=== PATIENT | male | born 1955 | race African-American/Black ===

== ENCOUNTER → 2016-05-18 | Outpatient (CLI) | payer MEDICARE ==
[~2016-05-18] MED LIST: AMLO5 PO; ASPI1TAB69 PO; LISI2.5T3 PO; METO25TA3 PO; OMEP40CA2 PO; SOMA350T PO
[2016-05-18 12:51] LABS: BASOPHIL % 0.7 % (0.0-2.0); EOSINOPHIL # 0.2 TH/MM3 (0-0.4); EOSINOPHIL % 3.4 % (0.0-4.0); HEMATOCRIT 40.6 % (39.0-51.0); HEMO FLAGS DIFF FINAL; LYMPH % 51.8 % (9.0-44.0); LYMPHOCYTE # 3.4 TH/MM3 (1.0-4.8); MEAN CELL VOLUME 85.5 FL (80.0-100.0); MEAN CORPUSCULAR HEMOGLOBIN 29.1 PG (27.0-34.0); MONO % 12.6 % (0.0-8.0); NEUT % 31.5 % (16.0-70.0); PLATELET COUNT 138 TH/MM3 (150-450); RED BLOOD COUNT 4.75 MIL/MM3 (4.50-5.90); RED CELL DISTRIBUTION WIDTH 14.5 % (11.6-17.2); WHITE BLOOD COUNT 6.5 TH/MM3 (4.0-11.0)
== END ==
LOC: CLAB 12:03
PROVIDERS: ATTEND Radiology Radiation Oncology
DX: C61 Malignant neoplasm of prostate (principal)
CPT/HCPCS: 36415; 84153; 85025

== ENCOUNTER → 2016-05-19 | Outpatient (CLI) | payer MEDICARE ==
[2016-05-19 11:39] LABS: BICARBONATE 30.3 MEQ/L (21.0-32.0); POTASSIUM 4.3 MEQ/L (3.5-5.1)
--- NOTE | 2016-05-19 22:35 | EKG ---
Date Performed: 05/19/2016 Time Performed: 11:48:02 PTAGE: 61 years EKG: Sinus bradycardia. Normal ECG except for rate PREVIOUS TRACING : 06/15/2015 06.53 DOCTOR: Devante Osorio Interpretating Date/Time 05/19/2016 22:34:24
== END ==
LOC: HCAV 10:56
PROVIDERS: ATTEND Urology
DX: C61 Malignant neoplasm of prostate (principal); R00.1 Bradycardia, unspecified
CPT/HCPCS: 36415; 80048; 93005

== ENCOUNTER → 2016-05-25 | Day surgery (SDC) | payer MEDICARE ==
[~2016-05-25] VITALS: Ht 180.3 cm; Wt 61.8 kg
[~2016-05-25] MED LIST changes: +DO NOT ADM ANY ANTICOAGULANT DRUGS XX PRN; +FAMOTIDINE 20 MG/2 ML VIAL ONE; +GENTAMICIN IV SCH; +INSULIN HUMAN REGULAR 1,000 UNITS/10 ML VIAL SQ PRN; +LACTATED RINGER'S 1000 ML IV SCH; +METOPROLOL TARTRATE 25 MG TAB PO PRN; +MIDAZOLAM HCL 2 MG/2 ML VIAL ONE; +PHENYLEPH/NS 1000 MCG/10 ML SYR IV ONE; +PROPOFOL 200 MG/20 ML AMP IV ONE; +SODIUM CHLORID 0.9% 500 ML IV SCH; +SODIUM CHLORIDE 0.9% IV SCH; -SOMA350T PO
[2016-05-25 13:32] VITALS: BP 106/62; PULSE 67; RESP 16; TEMP 98.4; O2SAT 100
[2016-05-25 15:24] VITALS: TEMP 97.9
[2016-05-25 15:58] VITALS: BP 110/60; PULSE 60; RESP 16; O2SAT 100
--- NOTE | 2016-05-31 08:36 | MP ---
cc: DEMARCUS DUNN MD DATE OF OPERATION 05/25/2016 PREOPERATIVE DIAGNOSIS Intermediate risk prostate cancer. POSTOPERATIVE DIAGNOSIS Intermediate risk prostate cancer. PROCEDURE PERFORMED Insertion of gold fiducial markers in preparation for IMRT. SURGEON MD Gilson ANESTHESIA MAC. COMPLICATIONS None. PREOPERATIVE ANTIBIOTICS Gentamicin 160 mg IV. DRAINS None. SPECIMENS None. BLOOD LOSS Minimal. DISPOSITION Stable to recovery. INDICATIONS The patient is a 61-year-old Afro-Armenian male with a history of elevated PSA. The patient was found to have intermediate risk prostate cancer. The treatment options were discussed and he would like to proceed with external beam radiation therapy as well as androgen deprivation therapy. The patient was then staged for insertion of gold seed markers in preparation for external beam radiation therapy. After the risks, benefits and alternatives were explained, the patient elected to proceed. Informed consent was obtained. DETAILS OF PROCEDURE The patient was properly identified, brought back to the operating room, was laid supine on the operating table. Appropriate time-out was performed under Anesthesiology. He was placed under MAC anesthetic. Gentamicin 100 mg was given within one hour to the start of the procedure. patient was then placed on his left side with his knees tucked to his chest. An ultrasound probe was carefully inserted into his rectum. The volume came out to be approximately 14 cubic cm. Four gold seed markers were then placed, two on the left side, two on the right side at the base and apex for a total of 4 gold fiducial markers. At this point this concluded the procedure. The patient was then sent to Recovery in stable condition without immediate complications. He will be discharged home to follow up as scheduled with Dr. Brito. Demarcus Dunn MD EMF/SSB /9:30 AM /7:25 AM
== END | disposition home or self-care (01) ==
LOC: HSDC 12:29
PROVIDERS: ATTEND Urology
DX: C61 Malignant neoplasm of prostate (principal); N52.01 Erectile dysfunction due to arterial insufficiency; I10 Essential (primary) hypertension
CPT/HCPCS: 00902; 55876; 76998; J1580; J2250; J2370; J3010; J7120

== ENCOUNTER → 2016-06-19 | Outpatient (CLI) | payer MEDICARE ==
[~2016-06-19] MED LIST changes: -ASPI1TAB69 PO; -DO NOT ADM ANY ANTICOAGULANT DRUGS XX PRN; -FAMOTIDINE 20 MG/2 ML VIAL ONE; -GENTAMICIN IV SCH; -INSULIN HUMAN REGULAR 1,000 UNITS/10 ML VIAL SQ PRN; -LACTATED RINGER'S 1000 ML IV SCH; -METOPROLOL TARTRATE 25 MG TAB PO PRN; -MIDAZOLAM HCL 2 MG/2 ML VIAL ONE; -PHENYLEPH/NS 1000 MCG/10 ML SYR IV ONE; -PROPOFOL 200 MG/20 ML AMP IV ONE; -SODIUM CHLORID 0.9% 500 ML IV SCH; -SODIUM CHLORIDE 0.9% IV SCH
[2016-06-19 07:27] LABS: AUTOMATED NEUTROPHIL # 3.3 TH/MM3 (1.8-7.7); BASOPHIL % 0.4 % (0.0-2.0); EOSINOPHIL # 0.1 TH/MM3 (0-0.4); EOSINOPHIL % 1.1 % (0.0-4.0); HEMATOCRIT 40.4 % (39.0-51.0); HEMO FLAGS DIFF FINAL; LYMPH % 48.9 % (9.0-44.0); LYMPHOCYTE # 4.2 TH/MM3 (1.0-4.8); MEAN CELL VOLUME 84.7 FL (80.0-100.0); MEAN CORPUSCULAR HEMOGLOBIN 29.2 PG (27.0-34.0); MEAN CORPUSCULAR HGB CONC 34.5 % (32.0-36.0); MONO % 11.1 % (0.0-8.0); NEUT % 38.5 % (16.0-70.0); PLATELET COUNT 156 TH/MM3 (150-450); RED BLOOD COUNT 4.78 MIL/MM3 (4.50-5.90); RED CELL DISTRIBUTION WIDTH 13.8 % (11.6-17.2); WHITE BLOOD COUNT 8.7 TH/MM3 (4.0-11.0)
[2016-06-19 07:34] LABS: PROTHROMBIN TIME - PATIENT 11.4 SEC (9.8-11.6)
[2016-06-19 07:44] LABS: ANION GAP 7 MEQ/L (5-15); AST (GOT) 28 U/L (15-37); BICARBONATE 26.5 MEQ/L (21.0-32.0); BLOOD UREA NITROGEN 15 MG/DL (7-18); CHLORIDE 108 MEQ/L (98-107); GLOMERULAR FILTRATION RATE 74 ML/MIN (>89); GLUCOSE,FASTING 97 MG/DL (74-99); POTASSIUM 4.8 MEQ/L (3.5-5.1); SODIUM (NA) 141 MEQ/L (136-145)
[2016-06-19 07:47] LABS: ALKALINE PHOSPHATASE 45 U/L (45-117); ALT (GPT) 27 U/L (12-78); TOTAL BILIRUBIN ADULT 0.6 MG/DL (0.2-1.0)
== END ==
LOC: CLAB 07:00
PROVIDERS: ATTEND Physician Assistant Medical
DX: K74.60 Unspecified cirrhosis of liver (principal)
CPT/HCPCS: 36415; 80053; 82105; 85025; 85610

== ENCOUNTER → 2016-06-20 | Outpatient (CLI) | payer MEDICARE ==
[2016-06-20 10:53] LABS: AUTOMATED NEUTROPHIL # 3.4 TH/MM3 (1.8-7.7); BASOPHIL # 0.1 TH/MM3 (0-0.2); BASOPHIL % 0.6 % (0.0-2.0); EOSINOPHIL # 0.2 TH/MM3 (0-0.4); EOSINOPHIL % 2.2 % (0.0-4.0); HEMATOCRIT 40.5 % (39.0-51.0); HEMO FLAGS DIFF FINAL; LYMPH % 47.2 % (9.0-44.0); LYMPHOCYTE # 4.3 TH/MM3 (1.0-4.8); MEAN CELL VOLUME 84.3 FL (80.0-100.0); MEAN CORPUSCULAR HEMOGLOBIN 29.1 PG (27.0-34.0); MEAN CORPUSCULAR HGB CONC 34.5 % (32.0-36.0); MONO % 11.8 % (0.0-8.0); NEUT % 38.2 % (16.0-70.0); PLATELET COUNT 150 TH/MM3 (150-450); RED CELL DISTRIBUTION WIDTH 13.6 % (11.6-17.2)
== END ==
LOC: CLAB 10:35
PROVIDERS: ATTEND Radiology Radiation Oncology
DX: Z01.818 Encounter for other preprocedural examination (principal); C61 Malignant neoplasm of prostate
CPT/HCPCS: 36415; 85025

== ENCOUNTER → 2016-08-03 | Outpatient (CLI) | payer MEDICARE | LOC: CLAB 10:34 | PROVIDERS: ATTEND Surgery | DX: C22.0 Liver cell carcinoma (principal) | CPT/HCPCS: 36415; 82105 ==

== ENCOUNTER → 2016-10-16 | Outpatient (CLI) | payer MEDICARE ==
[2016-10-16 12:05] LABS: AUTOMATED NEUTROPHIL # 3.6 TH/MM3 (1.8-7.7); BASOPHIL % 0.4 % (0.0-2.0); EOSINOPHIL # 0.2 TH/MM3 (0-0.4); EOSINOPHIL % 2.9 % (0.0-4.0); HEMATOCRIT 38.1 % (39.0-51.0); HEMO FLAGS DIFF FINAL; LYMPH % 43.4 % (9.0-44.0); LYMPHOCYTE # 3.6 TH/MM3 (1.0-4.8); MEAN CELL VOLUME 93.1 FL (80.0-100.0); MEAN CORPUSCULAR HEMOGLOBIN 31.8 PG (27.0-34.0); MEAN CORPUSCULAR HGB CONC 34.1 % (32.0-36.0); MONO % 10.9 % (0.0-8.0); NEUT % 42.4 % (16.0-70.0); PLATELET COUNT 189 TH/MM3 (150-450); RED BLOOD COUNT 4.09 MIL/MM3 (4.50-5.90); RED CELL DISTRIBUTION WIDTH 13.8 % (11.6-17.2); WHITE BLOOD COUNT 8.4 TH/MM3 (4.0-11.0)
[2016-10-16 12:37] LABS: ANION GAP 10 MEQ/L (5-15); AST (GOT) 21 U/L (15-37); BICARBONATE 22.7 MEQ/L (21.0-32.0); BLOOD UREA NITROGEN 13 MG/DL (7-18); CHLORIDE 106 MEQ/L (98-107); GLOMERULAR FILTRATION RATE 75 ML/MIN (>89); GLUCOSE,FASTING 95 MG/DL (74-99); POTASSIUM 3.8 MEQ/L (3.5-5.1); SODIUM (NA) 139 MEQ/L (136-145)
[2016-10-16 12:38] LABS: ALT (GPT) 19 U/L (12-78)
[2016-10-16 13:05] LABS: ALKALINE PHOSPHATASE 45 U/L (45-117); HDL CHOLESTEROL 48.8 MG/DL (40.0-60.0); LDL CHOLESTEROL 80 MG/DL (0-99); TOTAL BILIRUBIN ADULT 0.3 MG/DL (0.2-1.0)
== END ==
LOC: ELAB 09:41
PROVIDERS: ATTEND Family Medicine
DX: I10 Essential (primary) hypertension (principal); C61 Malignant neoplasm of prostate; R53.83 Other fatigue
CPT/HCPCS: 36415; 80053; 80061; 82306; 82607; 84153; 84443; 85025

== ENCOUNTER → 2016-11-06 | Outpatient (CLI) | payer MEDICARE | LOC: CLAB 11:48 | PROVIDERS: ATTEND Radiology Radiation Oncology | DX: C61 Malignant neoplasm of prostate (principal) | CPT/HCPCS: 36415; 84153 ==

== ENCOUNTER → 2017-01-01 | Outpatient (CLI) | payer MEDICARE, MEDICAID ==
[2017-01-01 12:18] LABS: AUTOMATED NEUTROPHIL # 2.5 TH/MM3 (1.8-7.7); BASOPHIL # 0.1 TH/MM3 (0-0.2); EOSINOPHIL # 0.4 TH/MM3 (0-0.4); EOSINOPHIL % 6.3 % (0.0-4.0); HEMATOCRIT 40.4 % (39.0-51.0); HEMO FLAGS DIFF FINAL; LYMPH % 45.5 % (9.0-44.0); LYMPHOCYTE # 3.2 TH/MM3 (1.0-4.8); MEAN CELL VOLUME 89.2 FL (80.0-100.0); MEAN CORPUSCULAR HEMOGLOBIN 30.9 PG (27.0-34.0); MEAN CORPUSCULAR HGB CONC 34.6 % (32.0-36.0); MONO % 11.5 % (0.0-8.0); NEUT % 35.7 % (16.0-70.0); PLATELET COUNT 168 TH/MM3 (150-450); RED BLOOD COUNT 4.53 MIL/MM3 (4.50-5.90); RED CELL DISTRIBUTION WIDTH 13.1 % (11.6-17.2)
[2017-01-01 12:35] LABS: PROTHROMBIN TIME - PATIENT 10.7 SEC (9.8-11.6)
[2017-01-01 12:49] LABS: ANION GAP 10 MEQ/L (5-15); AST (GOT) 27 U/L (15-37); BLOOD UREA NITROGEN 13 MG/DL (7-18); CHLORIDE 107 MEQ/L (98-107); GLOMERULAR FILTRATION RATE 74 ML/MIN (>89); GLUCOSE,FASTING 93 MG/DL (74-99); POTASSIUM 3.9 MEQ/L (3.5-5.1); SODIUM (NA) 139 MEQ/L (136-145)
[2017-01-01 12:50] LABS: ALT (GPT) 23 U/L (12-78)
[2017-01-01 12:53] LABS: ALKALINE PHOSPHATASE 45 U/L (45-117); TOTAL BILIRUBIN ADULT 0.3 MG/DL (0.2-1.0)
== END ==
LOC: CLAB 11:53
PROVIDERS: ATTEND Physician Assistant Medical
DX: K74.60 Unspecified cirrhosis of liver (principal)
CPT/HCPCS: 36415; 80053; 82105; 85025; 85610

== ENCOUNTER → 2017-01-18 | Outpatient (CLI) | payer MEDICARE, MEDICAID | LOC: CLAB 13:16 | PROVIDERS: ATTEND Family Medicine | DX: C61 Malignant neoplasm of prostate (principal) | CPT/HCPCS: 36415; 84153 ==

== ENCOUNTER → 2017-02-14 | Outpatient (CLI) | payer MEDICARE, MEDICAID | LOC: CLAB 14:13 | PROVIDERS: ATTEND Surgery | DX: C22.0 Liver cell carcinoma (principal) | CPT/HCPCS: 36415; 82105 ==

== ENCOUNTER 2017-03-13 09:37 | Inpatient (IN) | payer MEDICARE, MEDICAID ==
[~2017-03-13] VITALS: Ht 177.8 cm; Wt 66.8 kg
[2017-03-13] VITALS (19 sets, daily range): BP systolic 89–152; BP diastolic 60–91; PULSE 84–103; RESP 16–18; TEMP 98.1–103; O2SAT 99–100
[2017-03-13] MEDS ORDERED: NITROGLYCERIN 0.4 MG SL 25 TABS/BTL SL STA (09:41)
[2017-03-13] MEDS ORDERED: HEPARIN SODIUM - IV 10,000 UNITS/10 ML VIAL IV PUSH STA (09:41)
[2017-03-13] MEDS ORDERED: SODIUM CHLOR 0.9% 1000 ML INJ 1,000 ML IV ONE (09:41)
[2017-03-13] MEDS ORDERED: HEPARIN SODIUM - IV 10,000 UNITS/10 ML VIAL ONE ×2 (09:44→10:04)
[2017-03-13] MEDS ORDERED: NITROGLYCERIN-D5W 50 MG/250 ML 250 ML IV PRN (09:45)
[2017-03-13] MEDS ORDERED: NITROGLYCERIN 0.4 MG SL 25 TABS/BTL SL ONE (09:45)
[2017-03-13] MEDS ORDERED: MORPHINE SULFATE 4 MG/ML INJ IV PUSH ONE (09:45)
[2017-03-13] MEDS ORDERED: MORPHINE SULFATE 2 MG/ML INJ ONE (09:52)
--- NOTE | 2017-03-13 09:52 | PD ---
HPI Chief Complaint: STEMI Alert Time Seen by Provider: 09:41 Travel History International Travel<30 days: No Contact w/Intl Traveler<30days: No Traveled to known affect area: No History of Present Illness HPI His is a 62-year-old male with a history of hypertension, prostate cancer, who presents today with complaints of 2 day history of chest pain. The patient states that its a sharp and achy pain in his substernal area. He states today he started sprinting pain running down his left arm. He reports the pain as a 9 out of 10 on the pain scale. He reports some nausea with no vomiting. There is some sweating. There are no other associated complaints. PFSH Past Medical History Arthritis: Yes Asthma: No Autoimmune Disease: No Blood Disorders: No Anxiety: Yes Depression: Yes Heart Rhythm Problems: No Cancer: Yes (PROSTATE) Cardiovascular Problems: No High Cholesterol: No Chemotherapy: No Chest Pain: Yes Congestive Heart Failure: No COPD: No Cerebrovascular Accident: Yes (2007) Diabetes: No Diminished Hearing: No Endocrine: No Gastrointestinal Disorders: Yes (CYST LIVER) GERD: No Glaucoma: No Genitourinary: Yes (PROSTATE CA) Headaches: Yes Hepatitis: Yes (HX HEP C, LIVER SCLEROSIS) Hiatal Hernia: No Heparin Induced Thrombocytopen: Yes Hypertension: Yes Immune Disorder: No Kidney Stones: No Musculoskeletal: Yes (OA) Neurologic: No Psychiatric: No Reproductive: No Respiratory: No Immunizations Current: No Migraines: No Myocardial Infarction: No Radiation Therapy: No Renal Failure: No Seizures: No Sickle Cell Disease: No Sleep Apnea: No Thyroid Disease: No Ulcer: No PNEUMOCCOCAL Vaccine (Year): 2 Past Surgical History Abdominal Surgery: Yes (CHOLECYSTECTOMY, LIVER WEDGE BIOPSY) AICD: No Appendectomy: No Arteriovenous Shunt: No Cardiac Surgery: No Cholecystectomy: No Ear Surgery: No Endocrine Surgery: No Eye Surgery: No Genitourinary Surgery: No Insulin Pump: No Joint Replacement: No Oral Surgery: No Pacemaker: No Thoracic Surgery: No Other Surgery: No Social History Alcohol Use: No (FORMER) Tobacco Use: Yes (2-4 CIG/DAY) Substance Use: No Allergies-Medications (Allergen,Severity, Reaction): Coded Allergies: acetaminophen (Unverified Allergy, Severe, DOES NOT TAKE DUE TO HEP C, ) PER DR JENNIFER WADE, PT MAY HAVE HAVE TYLENOL IN LIMITED QUANTITY aspirin (Unverified Allergy, Severe, DOESN'T TAKE DUE TO HEPATITIS C, ) zolpidem (Unverified Adverse Reaction, Severe, Hypotension, 03/13/17) Reported Meds & Prescriptions Reported Meds & Active Scripts Active Reported Omeprazole 40 Mg Cap 40 Mg PO DAILY PRN Metoprolol Tartrate 25 Mg Tab 25 Mg PO DAILY Lisinopril 2.5 Mg Tab 2.5 Mg PO DAILY Norvasc (Amlodipine Besylate) 5 Mg Tab 5 Mg PO DAILY Review of Systems Except as stated in HPI: all other systems reviewed are Neg General / Constitutional: No: Fever, Chills HENT: No: Headaches, Neck Pain Cardiovascular: Positive: Chest Pain or Discomfort, Diaphoresis, No: Palpitations, Irregular Rhythm Respiratory: Positive: Shortness of Breath, No: Cough Gastrointestinal: Positive: Nausea, No: Vomiting, Abdominal Pain Musculoskeletal: No: Weakness (mild), Pain Skin: No Rash, No Itching Neurologic: No: Weakness, Dizziness, Headache Physical Exam Narrative GENERAL: Well-developed well-nourished male in no acute rest her distress SKIN: Focused skin assessment warm/dry. HEAD: Atraumatic. Normocephalic. EYES: Pupils equal and round. No scleral icterus. No injection or drainage. ENT: No nasal bleeding or discharge. Mucous membranes pink and moist. NECK: Trachea midline. No JVD. CARDIOVASCULAR: Regular rate and rhythm. No murmur appreciated. RESPIRATORY: No accessory muscle use. Clear to auscultation. Breath sounds equal bilaterally. GASTROINTESTINAL: Abdomen soft, non-tender, nondistended. Hepatic and splenic margins not palpable. MUSCULOSKELETAL: No obvious deformities. No clubbing. No cyanosis. No edema. NEUROLOGICAL: Awake and alert. No obvious cranial nerve deficits. Motor grossly within normal limits. Normal speech. PSYCHIATRIC: Appropriate mood and affect; insight and judgment normal. Data Data Last Documented VS Vital Signs Date Time Temp Pulse Resp B/P (MAP) Pulse Ox O2 Delivery O2 Flow Rate FiO2 03/13/17 09:47 98 03/13/17 09:43 18 139/91 (107) 99 Orders Orders Troponin I (03/13/17 09:41) Ckmb (Isoenzyme) Profile (03/13/17 09:41) Complete Blood Count With Diff (03/13/17 09:41) I-Stat Profile (03/13/17 09:41) I-Stat Creatinine (03/13/17 09:41) Calcium (03/13/17 09:41) Magnesium (Mg) (03/13/17 09:41) Prothrombin Time / Inr (Pt) (03/13/17 09:41) Act Partial Throm Time (Ptt) (03/13/17 09:41) B-Type Natriuretic Peptide (03/13/17 09:41) Chest, Single Ap (03/13/17 09:41) Electrocardiogram (03/13/17 09:41) Oxygen Administration (03/13/17 09:41) Iv Access Insert/Monitor (03/13/17 09:41) Oximetry (03/13/17 09:41) Sodium Chlor 0.9% 1000 Ml Inj (Ns 1000 M (03/13/17 09:41) Sodium Chloride 0.9% Flush (Ns Flush) (03/13/17 09:45) Nitroglycerin Sl (Nitrostat Sl) (03/13/17 09:41) Nitroglycerin-D5w 50 Mg/250 Ml (Nitrogly (03/13/17 09:45) Heparin Inj (Heparin Inj) (03/13/17 09:41) Morphine Inj (Morphine Inj) (03/13/17 09:45) Heparin Inj (Heparin Inj) (03/13/17 09:44) Nitroglycerin Sl (Nitrostat Sl) (03/13/17 09:45) Cardiac Catheterization (03/13/17 ) MDM Medical Decision Making Medical Screen Exam Complete: Yes Emergency Medical Condition: Yes Differential Diagnosis ACS versus GERD versus muscle skeletal pain Narrative Course 62-year-old male history hypertension, prostate cancer presents today with 2 day history of chest pain. Patient's EKG shows ST elevation in the lateral leads, V5 and V6. There is also slight elevation in 2 and possibly slight in lead 3. A STEMI alert was called. The patient's was discussed with Dr. Roberts , on-call STEMI physician, who will meet the patient in the [facility]. I discussed with the patient that he was having what we think is an acute KS and he'll be taken emergently to the. Diagnosis Primary Impression: Acute ST elevation myocardial infarction Additional Impressions: History of hypertension History of prostate cancer History of hepatitis C Admitting Information Admitting Physician Requests: Admit Mike Cardoza MD Mar 13, 2017 09:52
[2017-03-13] MEDS ORDERED: HEPARIN-NS/PF INJ 1,000 ML ONE (09:53)
[2017-03-13 10:00] LABS: AUTOMATED NEUTROPHIL # 14.3 TH/MM3 (1.8-7.7); BASOPHIL # 0.1 TH/MM3 (0-0.2); BASOPHIL % 0.7 % (0.0-2.0); EOSINOPHIL % 0.1 % (0.0-4.0); HEMATOCRIT 44.1 % (39.0-51.0); HEMOGLOBIN 15.1 GM/DL (13.0-17.0); LYMPH % 11.8 % (9.0-44.0); LYMPHOCYTE # 2.3 TH/MM3 (1.0-4.8); MEAN CELL VOLUME 88.8 FL (80.0-100.0); MEAN CORPUSCULAR HEMOGLOBIN 30.3 PG (27.0-34.0); MEAN CORPUSCULAR HGB CONC 34.1 % (32.0-36.0); MEAN PLATELET VOLUME 9.2 FL (7.0-11.0); MONO % 13.1 % (0.0-8.0); MONOCYTE # 2.5 TH/MM3 (0-0.9); NEUT % 74.3 % (16.0-70.0); PLATELET COUNT 190 TH/MM3 (150-450); RED BLOOD COUNT 4.96 MIL/MM3 (4.50-5.90); RED CELL DISTRIBUTION WIDTH 13.3 % (11.6-17.2); WHITE BLOOD COUNT 19.3 TH/MM3 (4.0-11.0)
[2017-03-13] MEDS ORDERED: MORPHINE SULFATE 2 MG/ML INJ IV PUSH ONE (10:00)
[2017-03-13] MEDS ORDERED: MIDAZOLAM HCL 2 MG/2 ML VIAL ONE ×4 (10:03→11:01)
--- NOTE | 2017-03-13 10:03 | RADRPT ---
EXAM DATE/TIME: 03/13/2017 09:48 [facility] COMPARISON: CHEST SINGLE AP, May 01, 2015, 23:53. INDICATIONS : Stemi Alert. MEDICAL HISTORY : Unobtainable. SURGICAL HISTORY : Unobtainable. ENCOUNTER: Initial ACUITY: 1 day PAIN SCORE: Non-responsive. LOCATION: Bilateral chest FINDINGS: A single view of the chest demonstrates the lungs to be symmetrically aerated without evidence of mas s, infiltrate or effusion. The cardiomediastinal contours are unremarkable. Osseous structures are intact. CONCLUSION: No acute disease. José Manuel Shanks MD on March 13, 2017 at 10:01 Board Certified Radiologist. This report was verified electronically.
[2017-03-13 10:10] LABS: INTERNATIONAL NORMALIZED RATIO 1.1 RATIO; PROTHROMBIN TIME - PATIENT 11.4 SEC (9.8-11.6)
[2017-03-13 10:28] LABS: ACANTHOCYTES OCC (NORMAL)
[2017-03-13 10:37] LABS: TROPONIN I GREATER THAN 40.00 NG/ML (0.02-0.05)
[2017-03-13] MEDS ORDERED: TICAGRELOR 90 MG TAB PO ONE (11:23)
[2017-03-13] MEDS: NITROGLYCERIN 0.4 MG SL 25 TABS/BTL SL SCH ×3 (16:51→19:32)
[2017-03-13] MEDS ORDERED: MISC INFORMATION XX ONE (17:30)
[2017-03-13] MEDS ORDERED: LORazepam 2 MG/ML VIAL IV PUSH PRN (17:30)
--- NOTE | 2017-03-13 17:31 | EKG ---
Date Performed: 03/13/2017 Time Performed: 09:40:13 PTAGE: 62 years EKG: SINUS TACHYCARDIA POSSIBLE RIGHT ATRIAL ENLARGEMENT POSSIBLE LEFT ATRIAL ENLARGEMENT INFERI OR MYOCARDIAL INFARCTION MODERATE T-WAVE ABNORMALITY, CONSIDER LATERAL ISCHEMIA ABNORMAL ECG Compared to PREVIOUS TRACING , the patient is now tachycardic and has inferior changes concerning for an inferior IL, possibly acute. PREVIOUS TRACIN05/19/2016 11.48 DOCTOR: Bere Valencia Interpretating Date/Time 03/13/2017 17:30:41
[2017-03-13] MEDS ORDERED: PILL SPLITTER OTHER PRN (17:45)
--- NOTE | 2017-03-13 17:59 | MA ---
cc: MARKEL YOUNG DATE: 03/13/[address]-elevation myocardial function, class IV angina, congestive heart failure, cardiomyopathy. PROCEDURE PERFORMED 1. Retrograde left heart catheterization with left ventriculography and selective coronary angiography. 2. Left internal mammary artery angiography. 3. Angioplasty of the first obtuse marginal artery. 4. Angioplasty and stenting of the right coronary artery and posterior left ventricular branch of the right coronary artery. 5. Moderate sedation. ACCESS SITE: Right femoral artery. EQUIPMENT USED: 5 Tamazight pigtail catheter, JL-4 and AR modified coronary catheters. XB circumflex 3.5 guide, BMW wire, 2.0 mm x 12 mm compliant balloon, was used for angioplasty of the first obtuse marginal artery. The vessel was severely diseased, severely calcified and the stent could not be negotiated through the proximal part of the vessel. Angioplasty of the right coronary and PLV branch was performed using 2.0 x 12 mm balloon. 2.25 x 18 and 2.5 x 12 mm Integrity stents used for the mid right coronary and 2.25 x 22 mm Integrity bare metal stent was used for PLV branch of the right coronary. MEDICATIONS 1. Versed IV. 2. Fentanyl IV. 3. Heparin IV. 4. Brilinta PO CONTRAST Omnipaque 260 cc. COMPLICATIONS None. BLOOD LOSS Less then 10 cc HEMOSTASIS Angio-Seal closure RESULTS HEMODYNAMICS: Heart rate; 80 beats per minute, LV end diastolic pressure 5 mmHg, left ventricle 85/5. Aorta 85/52/66. The left ventricle ejection fraction 35%, wall motion: severe anterolateral hypokinesis. No mitral insufficiency. CORONARY ANGIOGRAPHY: Left main coronary artery patent. Left anterior descending coronary artery has 70% stenosis of the mid portion. The first diagonal has 80% proximal stenosis. Second diagonal has 70% ostial stenosis. Circumflex artery has 50% stenosis of the proximal portion. OM1 is totally occluded. OM2 is patent. Right coronary has 80% diffuse stenosis in the mid portion, PDA 80% ostial stenosis. PLV has 99% proximal stenosis. Stenosis in the OM1: 100%, lesion length 35 mm, pre WESLEY flow zero, post WESLEY flow 3, post stenosis 40%. Stenosis in the RCA: 80%, lesion length 30 mm, pre WESLEY flow 3, post WESLEY flow 3, post stenosis 0. Stenosis of the PLV: 99%, pre WESLEY flow II, post WESLEY flow III, post stenosis 0. DIAGNOSIS 1. Severe extensive multivessel coronary disease. 2. Moderate dysfunction c/w ischemic cardiomyopathy. 3. Angioplasty of the first marginal artery. 4. Angioplasty and stenting of the mid-right coronary artery and posterior left ventricular branch of the right coronary artery. DISPOSITION Mr. Davis was found to have extensive multivessel coronary artery disease. Coronary bypass was considered but due to the comorbidities including severe liver disease, multivessel PCI was performed. He will continue therapy with Brilinta and baby aspirin. He will continue modification of his cardiac risk factors. I will follow him for cardiology during his hospitalization. MD ISABELLA Lainez/maria teresa /4:11 PM /5:10 PM NATALEE
[2017-03-13] MEDS: TICAGRELOR 90 MG TAB PO SCH (20:49)
[2017-03-13] MEDS: CARVEDILOL 3.125 MG TAB PO SCH (20:49)
[2017-03-13] MEDS: ACETAMINOPHEN 325 MG TAB PO PRN (20:50)
[2017-03-13 21:48] LABS: AUTOMATED NEUTROPHIL # 11.4 TH/MM3 (1.8-7.7); BASOPHIL % 0.2 % (0.0-2.0); EOSINOPHIL % 0.2 % (0.0-4.0); HEMATOCRIT 38.2 % (39.0-51.0); HEMOGLOBIN 13.1 GM/DL (13.0-17.0); LYMPH % 10.7 % (9.0-44.0); LYMPHOCYTE # 1.6 TH/MM3 (1.0-4.8); MEAN CELL VOLUME 88.1 FL (80.0-100.0); MEAN CORPUSCULAR HEMOGLOBIN 30.2 PG (27.0-34.0); MEAN CORPUSCULAR HGB CONC 34.2 % (32.0-36.0); MEAN PLATELET VOLUME 8.8 FL (7.0-11.0); MONOCYTE # 1.8 TH/MM3 (0-0.9); NEUT % 76.9 % (16.0-70.0); PLATELET COUNT 139 TH/MM3 (150-450); RED BLOOD COUNT 4.33 MIL/MM3 (4.50-5.90); RED CELL DISTRIBUTION WIDTH 13.7 % (11.6-17.2); WHITE BLOOD COUNT 14.7 TH/MM3 (4.0-11.0)
[2017-03-13] MEDS ORDERED: PANTOPRAZOLE SOD 40 MG DELAYED RELEASE TAB PO PRN (22:00)
--- NOTE | 2017-03-13 22:01 | HHI.HP ---
HPI Service [facility] Primary Care Physician No Primary Care Physician Admission Diagnosis acute st elevation mi, htn by history Diagnoses: Travel History International Travel<30 Days: No Contact w/Intl Traveler <30 Da: No Traveled to Known Affected Are: No History of Present Illness 62-year-old male with a past medical history significant for previous prostate cancer, hypertension, GERD and hepatitis C presents to the emergency department with chest pain that began on Jonathan Luana. He endorses accompanying shortness of breath and diaphoresis. In the emergency department, he was found to be having an ST segment cardiology infection. Cardiac catheterization showed severe extensive multivessel coronary disease with ischemic cardiomyopathy. Angioplasty of the first marginal artery and angioplasty with stenting of the right coronary artery was performed. Patient continues to report chest pain however states it is improved from when he came into the ED. Review of Systems Denies fever or chills Denies blurry vision, otorrhea, rhinorrhea Denies sore throat and cough Positive chest pain, shortness of breath resolved No abdominal pain Denies constipation/diarrhea/nausea/vomiting Denies muscle pain/weakness No rashes Past Family Social History Past Medical History History of prostate cancer, status post radiation Hypertension GERD Hepatitis C Past Surgical History Resection of liver lesion Cholecystectomy Reported Medications Reported Meds & Active Scripts Active Reported Omeprazole 40 Mg Cap 40 Mg PO DAILY PRN Metoprolol Tartrate 25 Mg Tab 25 Mg PO DAILY Lisinopril 2.5 Mg Tab 2.5 Mg PO DAILY Norvasc (Amlodipine Besylate) 5 Mg Tab 5 Mg PO DAILY Allergies: Coded Allergies: acetaminophen (Unverified Allergy, Severe, DOES NOT TAKE DUE TO HEP C, ) PER DR JENNIFER WADE, PT MAY HAVE HAVE TYLENOL IN LIMITED QUANTITY aspirin (Unverified Allergy, Severe, DOESN'T TAKE DUE TO HEPATITIS C, ) OK to start aspirin due to stenting Per zolpidem (Unverified Adverse Reaction, Severe, Hypotension, 03/13/17) Family History Denies family history of CAD/DM Social History Smokes approximately 2-3 cigarettes per day. Occasional alcohol. Positive marijuana. Denies other illicit drugs. Physical Exam Vital Signs Vital Signs Date Time Temp Pulse Resp B/P (MAP) Pulse Ox O2 Delivery O2 Flow Rate FiO2 03/13/17 21:40 101.3 03/13/17 21:10 102.7 03/13/17 20:40 103.0 03/13/17 20:00 101.8 100 16 110/76 (87) 99 03/13/17 18:00 88 03/13/17 17:00 96 03/13/17 17:00 18 03/13/17 16:00 84 03/13/17 15:27 98.3 93 18 124/75 (91) 100 03/13/17 15:00 84 03/13/17 14:00 84 03/13/17 13:00 84 03/13/17 12:00 90 03/13/17 11:53 98.1 91 18 120/82 (95) 100 03/13/17 09:50 03/13/17 09:50 103 18 152/85 (107) 100 03/13/17 09:47 98 03/13/17 09:43 102 18 139/91 (107) 99 Physical Exam GENERAL: Thin, male lying in bed SKIN: No rashes, ecchymoses or lesions. Cool and dry. HEAD: Atraumatic. Normocephalic. No temporal or scalp tenderness. EYES: Pupils equal round and reactive. Extraocular motions intact. No scleral icterus. No injection or drainage. ENT: Nose without bleeding, purulent drainage or septal hematoma. Throat without erythema, tonsillar hypertrophy or exudate. Uvula midline. Airway patent. NECK: Trachea midline. No JVD or lymphadenopathy. Supple, nontender, no meningeal signs. CARDIOVASCULAR: Regular rate and rhythm without murmurs, gallops, or rubs. RESPIRATORY: Clear to auscultation. Breath sounds equal bilaterally. No wheezes , rales, or rhonchi. GASTROINTESTINAL: Abdomen soft, non-tender, nondistended. No hepato-splenomegaly , or palpable masses. No guarding. MUSCULOSKELETAL: Extremities without clubbing, cyanosis, or edema. No joint tenderness, effusion, or edema noted. No calf tenderness. NEUROLOGICAL: Awake and alert. Cranial nerves II through XII intact. Motor and sensory grossly within normal limits. Normal speech. Laboratory Laboratory Tests Test 03/13/17 09:40 03/13/17 21:27 White Blood Count 19.3 Red Blood Count 4.96 Hemoglobin 15.1 Bedside Hemoglobin 15.0 Hematocrit 44.1 Bedside Hematocrit 44.0 Mean Corpuscular Volume 88.8 Mean Corpuscular Hemoglobin 30.3 Mean Corpuscular Hemoglobin Concent 34.1 Red Cell Distribution Width 13.3 Platelet Count 190 Mean Platelet Volume 9.2 Neutrophils (%) (Auto) 74.3 Lymphocytes (%) (Auto) 11.8 Monocytes (%) (Auto) 13.1 Eosinophils (%) (Auto) 0.1 Basophils (%) (Auto) 0.7 Neutrophils # (Auto) 14.3 Lymphocytes # (Auto) 2.3 Monocytes # (Auto) 2.5 Eosinophils # (Auto) 0.0 Basophils # (Auto) 0.1 CBC Comment AUTO DIFF Differential Comment AUTO DIFF CONFIRMED Platelet Estimate NORMAL Platelet Morphology Comment NORMAL Acanthocytes OCC Prothrombin Time 11.4 Prothromb Time International Ratio 1.1 Activated Partial Thromboplast Time 28.0 Bedside Sodium 136 Bedside Potassium 3.8 Bedside Chloride 100 Bedside Blood Urea Nitrogen 11 Bedside Creatinine 1.1 Bedside Glucose 126 Calcium Level 9.0 Magnesium Level 2.0 Total Creatine Kinase 1310 Creatine Kinase MB 37.7 Creatine Kinase MB % 2.9 Troponin I GREATER THAN 40.00 B-Type Natriuretic Peptide 186 Result Diagram: 03/13/17 0940 Caprini VTE Risk Assessment Caprini VTE Risk Assessment: Mod/High Risk (score >= 2) Caprini Risk Assessment Model Point Value = 1 Point Value = 2 Point Value = 3 Point Value = 5 Age 41-60 Minor surgery BMI > 25 kg/m2 Swollen legs Varicose veins or History of unexplained or recurrent spontaneous Oral contraceptives or hormone replacement Sepsis (< 1 month) Serious lung disease, including pneumonia (< 1 month) Abnormal pulmonary function Acute myocardial infarction Congestive heart failure (< 1 month) History of inflammatory bowel disease Medical patient at bed rest Age 61-74 Arthroscopic surgery Major open surgery (> 45 min) Laparoscopic surgery (> 45 min) Malignancy Confined to bed (> 72 hours) Immobilizing plaster cast Central venous access Age >= 75 History of VTE Family history of VTE Factor V Leiden Prothrombin [id number] Lupus anticoagulant Anticardiolipin antibodies Elevated serum homocysteine Heparin-induced thrombocytopenia Other congenital or acquired thrombophilia Stroke (< 1 month) Elective arthroplasty Hip, pelvis, or leg fracture Acute spinal cord injury (< 1 month) Prophylaxis Regimen Total Risk Factor Score Risk Level Prophylaxis Regimen 0-1 Low Early ambulation 2 Moderate Order ONE of the following: *Sequential Compression Device (SCD) *Heparin 5000 units SQ BID 3-4 Higher Order ONE of the following medications: *Heparin 5000 units SQ TID *Enoxaparin/Lovenox 40 mg SQ daily (WT < 150 kg, CrCl > 30 mL/min) *Enoxaparin/Lovenox 30 mg SQ daily (WT < 150 kg, CrCl > 10-29 mL/min) *Enoxaparin/Lovenox 30 mg SQ BID (WT < 150 kg, CrCl > 30 mL/min) AND/OR *Sequential Compression Device (SCD) 5 or more Highest Order ONE of the following medications: *Heparin 5000 units SQ TID (Preferred with Epidurals) *Enoxaparin/Lovenox 40 mg SQ daily (WT < 150 kg, CrCl > 30 mL/min) *Enoxaparin/Lovenox 30 mg SQ daily (WT < 150 kg, CrCl > 10-29 mL/min) *Enoxaparin/Lovenox 30 mg SQ BID (WT < 150 kg, CrCl > 30 mL/min) AND *Sequential Compression Device (SCD) Assessment and Plan Assessment and Plan Assessment/plan: 1. STEMI/CAD Status post cardiac catheterization with angioplasty and stent placement Brilinta and ASA Management per cardiology 2. Hypertension Coreg, lisinopril 3. GERD Continue omeprazole 4. Hepatitis C Chronic CMP pending 5. Tobacco abuse Cessation counseling provided FEN Heart healthy diet Electrolytes: monitor and replete prn Heparin Physician Certification 2 Midnight Certification Type: Admission for Inpatient Services Order for Inpatient Services The services are ordered in accordance with Medicare regulations or non- Medicare payer requirements, as applicable. In the case of services not specified as inpatient-only, they are appropriately provided as inpatient services in accordance with the 2-midnight benchmark. Estimated LOS (days): 2 2 days is the estimated time the patient will need to remain in the hospital, assuming treatment plan goals are met and no additional complications. Post-Hospital Plan: Not yet determined Fadumo Ahuja MD Mar 13, 2017 22:00
[2017-03-13] MEDS: HEPARIN SODIUM - SQ 10,000 UNITS/ML VIAL SQ SCH (22:23)
[2017-03-13 23:58] LABS: BACTERIA, URINE RARE /hpf; BLOOD, URINE NEG (NEG); GLUCOSE,URINE NEG (NEG); KETONE, URINE 10 mg/dL (NEG); MUCUS URINE FEW /lpf (OCC); NITRITE,URINE NEG (NEG); SQUAMOUS EPITHELIAL CELL URINE <1 /hpf (0-5); URINE COLOR YELLOW (YELLW/STRAW); URINE LEUKOCYTE ESTERASE NEG (NEG)
[2017-03-14] VITALS (28 sets, daily range): BP systolic 90–117; BP diastolic 53–71; PULSE 72–99; RESP 16–18; TEMP 98.8–102; O2SAT 98–99
[2017-03-14 00:01] LABS: BILIRUBIN, URINE NEG (NEG)
[2017-03-14] MEDS: ACETAMINOPHEN 325 MG TAB PO PRN ×3 (03:13→21:51)
[2017-03-14] MEDS: HEPARIN SODIUM - SQ 10,000 UNITS/ML VIAL SQ SCH ×3 (06:02→21:51)
[2017-03-14] MEDS: TICAGRELOR 90 MG TAB PO SCH ×2 (09:07→21:50)
[2017-03-14] MEDS: SODIUM CHLORIDE 0.9% FLUSH 10 ML FLUSH IVF PRN (09:07)
[2017-03-14] MEDS: CARVEDILOL 3.125 MG TAB PO SCH (09:08)
[2017-03-14] MEDS: ASPIRIN 81 MG CHEW TAB PO SCH (09:08)
[2017-03-14] MEDS: LISINOPRIL 5 MG TAB PO SCH (09:10)
[2017-03-14] MEDS: MORPHINE SULFATE 2 MG/ML INJ IV PUSH PRN ×2 (09:11→15:19)
[2017-03-14 09:34] LABS: AUTOMATED NEUTROPHIL # 11.7 TH/MM3 (1.8-7.7); BASOPHIL % 0.2 % (0.0-2.0); EOSINOPHIL % 0.3 % (0.0-4.0); HEMATOCRIT 37.8 % (39.0-51.0); HEMOGLOBIN 12.7 GM/DL (13.0-17.0); LYMPH % 11.8 % (9.0-44.0); LYMPHOCYTE # 1.7 TH/MM3 (1.0-4.8); MEAN CELL VOLUME 89.4 FL (80.0-100.0); MEAN CORPUSCULAR HEMOGLOBIN 30.1 PG (27.0-34.0); MEAN CORPUSCULAR HGB CONC 33.7 % (32.0-36.0); MEAN PLATELET VOLUME 9.3 FL (7.0-11.0); MONO % 8.5 % (0.0-8.0); MONOCYTE # 1.3 TH/MM3 (0-0.9); NEUT % 79.2 % (16.0-70.0); PLATELET COUNT 130 TH/MM3 (150-450); RED BLOOD COUNT 4.23 MIL/MM3 (4.50-5.90); RED CELL DISTRIBUTION WIDTH 13.8 % (11.6-17.2); WHITE BLOOD COUNT 14.8 TH/MM3 (4.0-11.0)
[2017-03-14 10:06] LABS: ALBUMIN 2.6 GM/DL (3.4-5.0); BICARBONATE 21.8 MEQ/L (21.0-32.0); BLOOD UREA NITROGEN 12 MG/DL (7-18); CALCIUM 8.7 MG/DL (8.5-10.1); CHLORIDE 104 MEQ/L (98-107); CREATININE 1.06 MG/DL (0.60-1.30); GLOMERULAR FILTRATION RATE 85 ML/MIN (>89); GLUCOSE,RANDOM 136 MG/DL (74-106); SODIUM (NA) 135 MEQ/L (136-145)
[2017-03-14 10:08] LABS: AST (GOT) 223 U/L (15-37); CHOLESTEROL 127 MG/DL (120-200)
[2017-03-14 10:12] LABS: ALKALINE PHOSPHATASE 69 U/L (45-117); ALT (GPT) 95 U/L (12-78); CHOLESTEROL/ HDL RATIO 2.23 RATIO; HDL CHOLESTEROL 56.8 MG/DL (40.0-60.0); LDL CHOLESTEROL 53 MG/DL (0-99); TOTAL PROTEIN 6.6 GM/DL (6.4-8.2); TRIGLYCERIDES 87 MG/DL (42-150)
--- NOTE | 2017-03-14 11:24 | PD.CARD.PN ---
Subjective Subjective Remarks Still with mild CP, no SOB, cath with extensive MV CAD Objective Medications Current Medications Medications (Trade) Dose Ordered Sig/Jan Route Start Time Stop Time Status Last Admin (NS Flush) 2 ml UNSCH PRN IVF 03/13/17 09:45 03/14/17 09:07 Nitroglycerin/ Dextrose 250 ml @ 3 mls/hr TITRATE PRN IV 03/13/17 09:45 (Aspirin Chew) 81 mg DAILY PO 03/14/17 09:00 03/14/17 09:08 (Brilinta) 90 mg BID PO 03/13/17 21:00 03/14/17 09:07 (Ativan Inj) 0.5 mg UNSCH PRN IV PUSH 03/13/17 17:30 03/14/17 17:29 (Coreg) 3.125 mg BID PO 03/13/17 21:00 03/14/17 09:08 (Prinivil) 2.5 mg DAILY PO 03/14/17 09:00 03/14/17 09:10 (Pill Splitter) 1 ea UNSCH PRN OTHER 03/13/17 17:45 (Tylenol) 650 mg Q4H PRN PO 03/13/17 20:30 03/14/17 03:13 (Morphine Inj) 2 mg Q3H PRN IV PUSH 03/13/17 20:45 03/14/17 09:11 (Heparin Inj) 5,000 units Q8HR SQ 03/13/17 22:00 03/14/17 06:02 (Protonix) 40 mg DAILY PRN PO 03/13/17 22:00 Vital Signs / I&O Vital Signs Date Time Temp Pulse Resp B/P (MAP) Pulse Ox O2 Delivery O2 Flow Rate FiO2 03/14/17 09:23 18 03/14/17 09:03 99.8 87 18 108/70 (83) 99 03/14/17 06:35 99.9 03/14/17 06:00 86 03/14/17 05:00 82 03/14/17 04:00 100.4 03/14/17 04:00 98 03/14/17 03:00 95 03/14/17 03:00 102.0 99 16 107/67 (80) 99 03/14/17 02:00 94 03/14/17 01:00 86 03/14/17 00:00 87 03/13/17 23:00 86 03/13/17 23:00 100.1 84 16 89/60 (70) 99 03/13/17 22:00 92 03/13/17 21:40 101.3 03/13/17 21:10 102.7 03/13/17 21:00 102 03/13/17 20:40 103.0 03/13/17 20:00 101.8 100 16 110/76 (87) 99 03/13/17 20:00 96 03/13/17 19:00 90 03/13/17 18:00 88 03/13/17 17:00 96 03/13/17 17:00 18 03/13/17 16:00 84 03/13/17 15:27 98.3 93 18 124/75 (91) 100 03/13/17 15:00 84 03/13/17 14:00 84 03/13/17 13:00 84 03/13/17 12:00 90 03/13/17 11:53 98.1 91 18 120/82 (95) 100 I/O 03/13/17 03/13/17 03/13/17 03/14/17 03/14/17 03/14/17 07:00 15:00 23:00 07:00 15:00 23:00 Intake Total 350 ml 460 ml Output Total 750 ml Balance -400 ml 460 ml Intake Oral 350 ml 460 ml Output Urine Total 750 ml # Voids 2 # Bowel Movements 0 Physical Exam GENERAL: In NAD SKIN: Warm and dry. HEAD: Normocephalic. EYES: No scleral icterus. No injection or drainage. NECK: Supple, trachea midline. No JVD or lymphadenopathy. CARDIOVASCULAR: Regular rate and rhythm without murmurs, gallops, or rubs. RESPIRATORY: Breath sounds equal bilaterally. No accessory muscle use. GASTROINTESTINAL: Abdomen soft, non-tender, nondistended. MUSCULOSKELETAL: No cyanosis, or edema. Groin stable Laboratory Laboratory Tests Test 03/13/17 21:27 03/13/17 23:30 03/14/17 08:23 White Blood Count 14.7 TH/MM3 14.8 TH/MM3 Red Blood Count 4.33 MIL/MM3 4.23 MIL/MM3 Hemoglobin 13.1 GM/DL 12.7 GM/DL Hematocrit 38.2 % 37.8 % Mean Corpuscular Volume 88.1 FL 89.4 FL Mean Corpuscular Hemoglobin 30.2 PG 30.1 PG Mean Corpuscular Hemoglobin Concent 34.2 % 33.7 % Red Cell Distribution Width 13.7 % 13.8 % Platelet Count 139 TH/MM3 130 TH/MM3 Mean Platelet Volume 8.8 FL 9.3 FL Neutrophils (%) (Auto) 76.9 % 79.2 % Lymphocytes (%) (Auto) 10.7 % 11.8 % Monocytes (%) (Auto) 12.0 % 8.5 % Eosinophils (%) (Auto) 0.2 % 0.3 % Basophils (%) (Auto) 0.2 % 0.2 % Neutrophils # (Auto) 11.4 TH/MM3 11.7 TH/MM3 Lymphocytes # (Auto) 1.6 TH/MM3 1.7 TH/MM3 Monocytes # (Auto) 1.8 TH/MM3 1.3 TH/MM3 Eosinophils # (Auto) 0.0 TH/MM3 0.0 TH/MM3 Basophils # (Auto) 0.0 TH/MM3 0.0 TH/MM3 CBC Comment DIFF FINAL DIFF FINAL Differential Comment Urine Color YELLOW Urine Turbidity CLEAR Urine pH 6.0 Urine Specific [place] GREATER THAN 1.050 Urine Protein 30 mg/dL Urine Glucose (UA) NEG mg/dL Urine Ketones 10 mg/dL Urine Occult Blood NEG Urine Nitrite NEG Urine Bilirubin NEG Urine Urobilinogen 4.0 MG/DL Urine Leukocyte Esterase NEG Urine WBC 1 /hpf Urine Squamous Epithelial Cells <1 /hpf Urine Bacteria RARE /hpf Urine Mucus FEW /lpf Microscopic Urinalysis Comment CULT NOT INDICATED Blood Urea Nitrogen 12 MG/DL Creatinine 1.06 MG/DL Random Glucose 136 MG/DL Total Protein 6.6 GM/DL Albumin 2.6 GM/DL Calcium Level 8.7 MG/DL Alkaline Phosphatase 69 U/L Aspartate Amino Transf (AST/SGOT) 223 U/L Alanine Aminotransferase (ALT/SGPT) 95 U/L Total Bilirubin 1.0 MG/DL Sodium Level 135 MEQ/L Potassium Level 3.3 MEQ/L Chloride Level 104 MEQ/L Carbon Dioxide Level 21.8 MEQ/L Anion Gap 9 MEQ/L Estimat Glomerular Filtration Rate 85 ML/MIN Total Creatine Kinase 533 U/L Creatine Kinase MB 11.5 NG/ML Creatine Kinase MB % 2.2 % Triglycerides Level 87 MG/DL Cholesterol Level 127 MG/DL LDL Cholesterol 53 MG/DL HDL Cholesterol 56.8 MG/DL Cholesterol/HDL Ratio 2.23 RATIO Assessment and Plan Problem List: (1) Ischemic cardiomyopathy ICD Codes: I25.5 - Ischemic cardiomyopathy (2) Stented coronary artery ICD Codes: Z95.5 - Presence of coronary angioplasty implant and graft (3) CAD (coronary artery disease) ICD Codes: I25.10 - Atherosclerotic heart disease of [place] coronary artery without angina pectoris (4) Acute ST elevation myocardial infarction ICD Codes: I21.3 - ST elevation (STEMI) myocardial infarction of unspecified site Status: Acute (5) History of hepatitis C ICD Codes: Z86.19 - Personal history of other infectious and parasitic diseases Status: Acute (6) Cirrhosis ICD Codes: K74.60 - Unspecified cirrhosis of liver Status: Acute (7) Liver mass, right lobe ICD Codes: R16.0 - Hepatomegaly, not elsewhere classified Status: Acute (8) History of hypertension ICD Codes: Z86.79 - Personal history of other diseases of the circulatory system Status: Acute Assessment and Plan Cath showed extensive multivessel CAD and LV dysfunction c/w recent IA ( troponin over 40 on admission). PTCA of OM1 and PTCA/stent of RCA/PLV performed. Continue baby ASA and Brilinta, beta lamin, PEPITO-I. Continue monitoring on tele. Increase activity. Fatmata Roberts MD Mar 14, 2017 11:24
[2017-03-14] MEDS ORDERED: CARVEDILOL 3.125 MG TAB PO ONE (11:45)
--- NOTE | 2017-03-14 13:21 | HHI.PR ---
Subjective Remarks Follow-up STEMI 03/14/17-patient seen and examined, he started post left heart catheterization 03/13/17. Still complained of mild chest pain however denies any shortness of breath. Tmax 103 at 8:40 PM however currently afebrile 99.3 @11 Objective Vitals Vital Signs Date Time Temp Pulse Resp B/P (MAP) Pulse Ox O2 Delivery O2 Flow Rate FiO2 03/14/17 11:03 99.3 81 17 103/71 (82) 98 03/14/17 09:23 18 03/14/17 09:03 99.8 87 18 108/70 (83) 99 03/14/17 06:35 99.9 03/14/17 06:00 86 03/14/17 05:00 82 03/14/17 04:00 100.4 03/14/17 04:00 98 03/14/17 03:00 95 03/14/17 03:00 102.0 99 16 107/67 (80) 99 03/14/17 02:00 94 03/14/17 01:00 86 03/14/17 00:00 87 03/13/17 23:00 86 03/13/17 23:00 100.1 84 16 89/60 (70) 99 03/13/17 22:00 92 03/13/17 21:40 101.3 03/13/17 21:10 102.7 03/13/17 21:00 102 03/13/17 20:40 103.0 03/13/17 20:00 101.8 100 16 110/76 (87) 99 03/13/17 20:00 96 03/13/17 19:00 90 03/13/17 18:00 88 03/13/17 17:00 96 03/13/17 17:00 18 03/13/17 16:00 84 03/13/17 15:27 98.3 93 18 124/75 (91) 100 03/13/17 15:00 84 03/13/17 14:00 84 I/O 03/13/17 03/13/17 03/13/17 03/14/17 03/14/17 03/14/17 07:00 15:00 23:00 07:00 15:00 23:00 Intake Total 350 ml 460 ml Output Total 750 ml Balance -400 ml 460 ml Intake Oral 350 ml 460 ml Output Urine Total 750 ml # Voids 2 # Bowel Movements 0 Result Diagram: 03/14/1782203/14/17822 Imaging Last Impressions Chest X-Ray 03/13/17940 Signed Impressions: Service Date/Time: Monday, March 13, 2017 09:48 - CONCLUSION: No acute disease. José Manuel Shanks MD Objective Remarks GENERAL: NAD SKIN: Warm and dry. HEAD: Normocephalic. EYES: No scleral icterus. No injection or drainage. NECK: Supple, trachea midline. No JVD or lymphadenopathy. CARDIOVASCULAR: Regular rate and rhythm without murmurs, gallops, or rubs. RESPIRATORY: Breath sounds equal bilaterally. No accessory muscle use. GASTROINTESTINAL: Abdomen soft, non-tender, nondistended. MUSCULOSKELETAL: No cyanosis, or edema. BACK: Nontender without obvious deformity. No CVA tenderness. A/P Problem List: (1) Multi-vessel coronary artery stenosis ICD Code: I25.10 - Atherosclerotic heart disease of [place] coronary artery without angina pectoris (2) STEMI (ST elevation myocardial infarction) ICD Code: I21.3 - ST elevation (STEMI) myocardial infarction of unspecified site (3) History of hepatitis C ICD Code: Z86.19 - Personal history of other infectious and parasitic diseases Status: Acute (4) History of hypertension ICD Code: Z86.79 - Personal history of other diseases of the circulatory system Status: Acute Assessment and Plan 62 year-old man with 1. STEMI/CAD/multivessel CAD Status post cardiac catheterization with angioplasty and stent placement Continue Brilinta and ASA Management per cardiology 2. Hypertension Continue Coreg, lisinopril 3. GERD Continue omeprazole 4. Hepatitis C Chronic CMP pending 5. Tobacco abuse Cessation counseling provided 6. Febrile episode of unknown origin UA negative, chest x-ray without any cardio pulmonary disease, blood culture negative to date Continue to monitor however may consider ID consultation if no improvement Dominic Field MD Mar 14, 2017 13:20
[2017-03-14] MEDS ORDERED: DOCUSATE SODIUM 50 MG/SENNA 8.6 MG TAB PO PRN (13:30)
[2017-03-14] MEDS ORDERED: RESP: ALBUTEROL 2.5 MG/IPRATROPIUM 0.5 MG NEB (PRN) NEB (13:30)
[2017-03-14] MEDS ORDERED: ONDANSETRON HCL 4 MG/2 ML VIAL IV PUSH PRN (13:30)
[2017-03-14] MEDS ORDERED: TEMAZEPAM 15 MG CAP PO PRN (13:30)
--- NOTE | 2017-03-14 14:24 | EKG ---
Date Performed: 03/14/2017 Time Performed: 05:32:00 PTAGE: 62 years EKG: CONSIDER ACUTE ST ELEVATION CT Sinus rhythm Inferior infarct - age undetermined Lateral ST elevation, CONSIDER ACUTE INFARCT Low QRS voltages in limb leads Abnormal ECG PREVIOUS TRACING : 03/13/2017 15.18 DOCTOR: Bradley Avendaño Interpretating Date/Time 03/14/2017 14:22:20
--- NOTE | 2017-03-14 15:09 | EKG ---
Date Performed: 03/13/2017 Time Performed: 15:18:04 PTAGE: 62 years EKG: Sinus rhythm Leftward axis Inferior infarct - age undetermined Anterolateral T wave changes may be due to myocard ial ischemia Abnormal ECG PREVIOUS TRACING : 03/13/2017 09.40 DOCTOR: Bradley Avendaño Interpretating Date/Time 03/14/2017 15:08:32
[2017-03-14] MEDS: CARVEDILOL 6.25 MG TAB PO SCH (21:51)
[2017-03-15] VITALS (29 sets, daily range): BP systolic 93–110; BP diastolic 58–74; PULSE 70–106; RESP 16–18; TEMP 99–101; O2SAT 98–100
[2017-03-15] MEDS: ACETAMINOPHEN 325 MG TAB PO PRN (03:40)
[2017-03-15] MEDS: HEPARIN SODIUM - SQ 10,000 UNITS/ML VIAL SQ SCH ×3 (05:53→20:07)
[2017-03-15] MEDS: TICAGRELOR 90 MG TAB PO SCH ×2 (09:10→20:06)
[2017-03-15] MEDS: LISINOPRIL 5 MG TAB PO SCH (09:10)
[2017-03-15] MEDS: CARVEDILOL 6.25 MG TAB PO SCH ×2 (09:10→20:06)
[2017-03-15] MEDS: ASPIRIN 81 MG CHEW TAB PO SCH (09:11)
--- NOTE | 2017-03-15 09:51 | HHI.PR ---
Subjective Remarks Follow-up STEMI 03/14/17-patient seen and examined, he started post left heart catheterization 03/13/17. Still complained of mild chest pain however denies any shortness of breath. Tmax 103 at 8:40 PM however currently afebrile 99.3 @11 03/07/17-patient seen and examined, Tmax 101.3 at 3:30 AM however currently afebrile. Denies any chest pain or shortness of breath Objective Vitals Vital Signs Date Time Temp Pulse Resp B/P (MAP) Pulse Ox O2 Delivery O2 Flow Rate FiO2 03/15/17 08:55 99.3 79 16 109/74 (86) 100 03/15/17 06:00 90 03/15/17 05:53 99.0 03/15/17 05:00 76 03/15/17 04:00 75 03/15/17 03:30 101.0 85 16 110/67 (81) 99 03/15/17 03:00 80 03/15/17 02:00 73 03/15/17 01:46 100.0 03/15/17 01:00 76 03/15/17 00:00 80 03/14/17 23:00 100.7 78 16 90/57 (68) 98 03/14/17 23:00 84 03/14/17 22:00 84 03/14/17 22:00 102.0 03/14/17 21:00 76 03/14/17 20:00 84 03/14/17 20:00 99.8 82 16 117/69 (85) 98 03/14/17 19:00 74 03/14/17 18:00 80 03/14/17 17:09 98.8 18 110/68 (82) 99 03/14/17 17:00 72 03/14/17 16:00 74 03/14/17 16:00 18 03/14/17 15:09 100.2 86 18 117/53 (74) 99 03/14/17 15:00 77 03/14/17 14:58 17 03/14/17 14:00 92 03/14/17 13:00 82 03/14/17 11:03 99.3 81 17 103/71 (82) 98 03/14/17 11:00 81 03/14/17 10:00 84 I/O 12/03/14/17 03/14/17 03/15/17 03/15/17 03/15/17 07:00 15:00 23:00 07:00 15:00 23:00 Intake Total 460 ml 600 ml 360 ml Output Total 400 ml Balance 460 ml 200 ml 360 ml Intake Oral 460 ml 600 ml 360 ml Output Urine Total 400 ml # Voids 2 4 # Bowel Movements 0 0 0 Result Diagram: 03/14/17 0803/14/17822 Imaging Last Impressions Chest X-Ray 03/13/17940 Signed Impressions: Service Date/Time: Monday, March 13, 2017 09:48 - CONCLUSION: No acute disease. José Manuel Shanks MD Objective Remarks GENERAL: NAD SKIN: Warm and dry. HEAD: Normocephalic. EYES: No scleral icterus. No injection or drainage. NECK: Supple, trachea midline. No JVD or lymphadenopathy. CARDIOVASCULAR: Regular rate and rhythm without murmurs, gallops, or rubs. RESPIRATORY: Breath sounds equal bilaterally. No accessory muscle use. GASTROINTESTINAL: Abdomen soft, non-tender, nondistended. MUSCULOSKELETAL: No cyanosis, or edema. BACK: Nontender without obvious deformity. No CVA tenderness. A/P Problem List: (1) Multi-vessel coronary artery stenosis ICD Code: I25.10 - Atherosclerotic heart disease of [place] coronary artery without angina pectoris (2) STEMI (ST elevation myocardial infarction) ICD Code: I21.3 - ST elevation (STEMI) myocardial infarction of unspecified site (3) History of hepatitis C ICD Code: Z86.19 - Personal history of other infectious and parasitic diseases Status: Acute (4) History of hypertension ICD Code: Z86.79 - Personal history of other diseases of the circulatory system Status: Acute Assessment and Plan 62 year-old man with 1. STEMI/CAD/multivessel CAD Status post cardiac catheterization with angioplasty and stent placement Continue Brilinta and ASA Management per cardiology 2. Hypertension Continue Coreg, lisinopril 3. GERD Continue omeprazole 4. Hepatitis C Chronic, monitor 5. Tobacco abuse Cessation counseling provided 6. Febrile episode of unknown origin UA negative, chest x-ray without any cardio pulmonary disease, blood culture negative to date Continue to monitor however may consider ID consultation if no improvement DVT prophylaxis: Bilateral SCDs Dominic Field MD Mar 15, 2017 09:51
[2017-03-15] MEDS ORDERED: MAGNESIUM HYDROXIDE SUSP 30 ML CUP PO PRN (13:00)
--- NOTE | 2017-03-15 16:26 | PD.CARD.PN ---
Subjective Subjective Remarks CP resolved, no SOB, cath with extensive MV CAD, PCI of OM1 and RCA Objective Medications Current Medications Medications (Trade) Dose Ordered Sig/Jan Route Start Time Stop Time Status Last Admin (NS Flush) 2 ml UNSCH PRN IVF 03/13/17 09:45 03/14/17 09:07 Nitroglycerin/ Dextrose 250 ml @ 3 mls/hr TITRATE PRN IV 03/13/17 09:45 (Aspirin Chew) 81 mg DAILY PO 03/14/17 09:00 03/15/17 09:11 (Brilinta) 90 mg BID PO 03/13/17 21:00 03/15/17 09:10 (Prinivil) 2.5 mg DAILY PO 03/14/17 09:00 03/15/17 09:10 (Pill Splitter) 1 ea UNSCH PRN OTHER 03/13/17 17:45 (Tylenol) 650 mg Q4H PRN PO 03/13/17 20:30 03/15/17 03:40 (Morphine Inj) 2 mg Q3H PRN IV PUSH 03/13/17 20:45 03/14/17 15:19 (Heparin Inj) 5,000 units Q8HR SQ 03/13/17 22:00 03/15/17 14:09 (Protonix) 40 mg DAILY PRN PO 03/13/17 22:00 (Coreg) 6.25 mg BID PO 03/14/17 21:00 03/15/17 09:10 (Zofran Inj) 4 mg Q6H PRN IV PUSH 03/14/17 13:30 (Josiane-Colace) 1 tab BID PRN PO 03/14/17 13:30 03/15/17 09:09 (Restoril) 15 mg HS PRN PO 03/14/17 13:30 (Duoneb Neb) 1 ampule Q2HR NEB PRN NEB 03/14/17 13:30 (Milk Of Magnesia Liq) 30 ml DAILY PRN PO 03/15/17 13:00 03/15/17 14:08 Vital Signs / I&O Vital Signs Date Time Temp Pulse Resp B/P (MAP) Pulse Ox O2 Delivery O2 Flow Rate FiO2 03/15/17 16:18 79 03/15/17 15:04 99.2 85 16 109/63 (78) 98 03/15/17 15:00 77 03/15/17 14:00 100 03/15/17 13:00 78 03/15/17 12:00 70 03/15/17 11:20 99.1 79 16 93/58 (70) 100 03/15/17 11:00 77 03/15/17 10:00 106 03/15/17 09:00 80 03/15/17 08:55 99.3 79 16 109/74 (86) 100 03/15/17 08:00 74 03/15/17 07:00 82 03/15/17 06:00 90 03/15/17 05:53 99.0 03/15/17 05:00 76 03/15/17 04:00 75 03/15/17 03:30 101.0 85 16 110/67 (81) 99 03/15/17 03:00 80 03/15/17 02:00 73 03/15/17 01:46 100.0 03/15/17 01:00 76 03/15/17 00:00 80 03/14/17 23:00 100.7 78 16 90/57 (68) 98 03/14/17 23:00 84 03/14/17 22:00 84 03/14/17 22:00 102.0 03/14/17 21:00 76 03/14/17 20:00 84 03/14/17 20:00 99.8 82 16 117/69 (85) 98 03/14/17 19:00 74 03/14/17 18:00 80 03/14/17 17:09 98.8 18 110/68 (82) 99 03/14/17 17:00 72 I/O 03/14/17 03/14/17 03/14/17 03/15/17 03/15/17 03/15/17 06:59 14:59 22:59 06:59 14:59 22:59 Intake Total 460 ml 600 ml 360 ml Output Total 400 ml Balance 460 ml 200 ml 360 ml Intake Oral 460 ml 600 ml 360 ml Output Urine Total 400 ml # Voids 2 4 # Bowel Movements 0 0 0 Physical Exam GENERAL: In NAD SKIN: Warm and dry. HEAD: Normocephalic. EYES: No scleral icterus. No injection or drainage. NECK: Supple, trachea midline. No JVD or lymphadenopathy. CARDIOVASCULAR: Regular rate and rhythm without murmurs, gallops, or rubs. RESPIRATORY: Breath sounds equal bilaterally. No accessory muscle use. GASTROINTESTINAL: Abdomen soft, non-tender, nondistended. MUSCULOSKELETAL: No cyanosis, or edema. Groin stable Assessment and Plan Problem List: (1) Ischemic cardiomyopathy ICD Codes: I25.5 - Ischemic cardiomyopathy (2) Stented coronary artery ICD Codes: Z95.5 - Presence of coronary angioplasty implant and graft (3) CAD (coronary artery disease) ICD Codes: I25.10 - Atherosclerotic heart disease of [place] coronary artery without angina pectoris (4) Acute ST elevation myocardial infarction ICD Codes: I21.3 - ST elevation (STEMI) myocardial infarction of unspecified site Status: Acute (5) History of hepatitis C ICD Codes: Z86.19 - Personal history of other infectious and parasitic diseases Status: Acute (6) Cirrhosis ICD Codes: K74.60 - Unspecified cirrhosis of liver Status: Acute (7) Liver mass, right lobe ICD Codes: R16.0 - Hepatomegaly, not elsewhere classified Status: Acute (8) History of hypertension ICD Codes: Z86.79 - Personal history of other diseases of the circulatory system Status: Acute Assessment and Plan Overall improvement, CP now resolved. Cath showed extensive multivessel CAD and LV dysfunction c/w recent MS (troponin over 40 on admission). PTCA of OM1 and PTCA/stent of RCA/PLV performed. Continue baby ASA and Brilinta, beta lamin, PEPITO-I. Continue monitoring on tele. Increase activity. Home tomorrow if stable. F/u w PCP. Fatmata Roberts MD Mar 15, 2017 16:26
[2017-03-15] MEDS: MORPHINE SULFATE 2 MG/ML INJ IV PUSH PRN (23:20)
[2017-03-16] VITALS (12 sets, daily range): BP systolic 93–110; BP diastolic 51–60; PULSE 66–83; RESP 18; TEMP 97.7–100.3; O2SAT 98–100
[2017-03-16] MEDS: HEPARIN SODIUM - SQ 10,000 UNITS/ML VIAL SQ SCH (04:03)
[2017-03-16 06:39] LABS: AUTOMATED NEUTROPHIL # 6.1 TH/MM3 (1.8-7.7); BASOPHIL % 0.3 % (0.0-2.0); EOSINOPHIL # 0.2 TH/MM3 (0-0.4); EOSINOPHIL % 2.1 % (0.0-4.0); HEMATOCRIT 34.9 % (39.0-51.0); HEMOGLOBIN 11.9 GM/DL (13.0-17.0); LYMPH % 22.3 % (9.0-44.0); LYMPHOCYTE # 2.2 TH/MM3 (1.0-4.8); MEAN CELL VOLUME 89.8 FL (80.0-100.0); MEAN CORPUSCULAR HEMOGLOBIN 30.6 PG (27.0-34.0); MEAN CORPUSCULAR HGB CONC 34.1 % (32.0-36.0); MEAN PLATELET VOLUME 9.9 FL (7.0-11.0); MONO % 12.6 % (0.0-8.0); MONOCYTE # 1.2 TH/MM3 (0-0.9); NEUT % 62.7 % (16.0-70.0); PLATELET COUNT 144 TH/MM3 (150-450); RED BLOOD COUNT 3.89 MIL/MM3 (4.50-5.90); RED CELL DISTRIBUTION WIDTH 13.4 % (11.6-17.2); WHITE BLOOD COUNT 9.8 TH/MM3 (4.0-11.0)
[2017-03-16 07:05] LABS: BICARBONATE 24.7 MEQ/L (21.0-32.0); CALCIUM 8.4 MG/DL (8.5-10.1); CREATININE 1.07 MG/DL (0.60-1.30)
[2017-03-16] MEDS: CARVEDILOL 6.25 MG TAB PO SCH (08:32)
[2017-03-16] MEDS: SODIUM CHLORIDE 0.9% FLUSH 10 ML FLUSH IVF PRN (08:32)
[2017-03-16] MEDS: LISINOPRIL 5 MG TAB PO SCH (08:32)
[2017-03-16] MEDS: TICAGRELOR 90 MG TAB PO SCH (08:32)
[2017-03-16] MEDS: ASPIRIN 81 MG CHEW TAB PO SCH (08:32)
--- NOTE | 2017-03-16 11:13 | HHI.PR ---
Subjective Remarks Follow-up STEMI 03/14/17-patient seen and examined, he started post left heart catheterization 03/13/17. Still complained of mild chest pain however denies any shortness of breath. Tmax 103 at 8:40 PM however currently afebrile 99.3 @11 03/15/17-patient seen and examined, Tmax 101.3 at 3:30 AM however currently afebrile. Denies any chest pain or shortness of breath 03/16/17-patient seen and examined, low-grade temp overnight however currently afebrile. Denies any chest pain or shortness of breath. Wants to go home. Objective Vitals Vital Signs Date Time Temp Pulse Resp B/P (MAP) Pulse Ox O2 Delivery O2 Flow Rate FiO2 03/16/17 09:42 68 03/16/17 09:40 99.0 80 18 100/52 (68) 98 03/16/17 08:02 66 03/16/17 07:52 68 03/16/17 06:00 66 03/16/17 05:00 70 03/16/17 04:00 67 03/16/17 04:00 100.3 83 18 93/51 (65) 100 03/16/17 03:00 72 03/16/17 02:00 80 03/16/17 01:00 80 03/16/17 00:00 83 03/16/17 00:00 97.7 77 18 99/53 (68) 98 03/15/17 23:00 78 03/15/17 22:00 78 03/15/17 21:00 72 03/15/17 20:00 99.8 75 18 101/68 (79) 03/15/17 20:00 80 03/15/17 18:11 75 03/15/17 17:31 76 03/15/17 16:18 79 03/15/17 15:04 99.2 85 16 109/63 (78) 98 03/15/17 15:00 77 03/15/17 14:00 100 03/15/17 13:00 78 03/15/17 12:00 70 03/15/17 11:20 99.1 79 16 93/58 (70) 100 I/O 03/15/17 03/15/17 03/15/17 03/16/17 03/16/17 03/16/17 07:00 15:00 23:00 07:00 15:00 23:00 Intake Total 360 ml 930 ml 240 ml Balance 360 ml 930 ml 240 ml Intake Oral 360 ml 930 ml 240 ml # Voids 4 5 2 # Bowel Movements 0 1 Result Diagram: 03/16/17 0451 03/16/17 0451 Imaging Last Impressions Chest X-Ray 03/13/17 0941 Signed Impressions: Service Date/Time: Monday, March 13, 2017 09:48 - CONCLUSION: No acute disease. José Manuel Shanks MD Objective Remarks GENERAL: NAD SKIN: Warm and dry. HEAD: Normocephalic. EYES: No scleral icterus. No injection or drainage. NECK: Supple, trachea midline. No JVD or lymphadenopathy. CARDIOVASCULAR: Regular rate and rhythm without murmurs, gallops, or rubs. RESPIRATORY: Breath sounds equal bilaterally. No accessory muscle use. GASTROINTESTINAL: Abdomen soft, non-tender, nondistended. MUSCULOSKELETAL: No cyanosis, or edema. BACK: Nontender without obvious deformity. No CVA tenderness. Procedures PTCA of OM1 and PTCA/stent of RCA/PLV performed A/P Problem List: (1) Multi-vessel coronary artery stenosis ICD Code: I25.10 - Atherosclerotic heart disease of [place] coronary artery without angina pectoris (2) STEMI (ST elevation myocardial infarction) ICD Code: I21.3 - ST elevation (STEMI) myocardial infarction of unspecified site (3) History of hepatitis C ICD Code: Z86.19 - Personal history of other infectious and parasitic diseases Status: Acute (4) History of hypertension ICD Code: Z86.79 - Personal history of other diseases of the circulatory system Status: Acute Assessment and Plan 62 year-old man with 1. STEMI/CAD/multivessel CAD Status post cardiac catheterization with angioplasty and stent placement PTCA of OM1 and PTCA/stent of RCA/PLV performed Continue Brilinta and ASA Management per cardiology 2. Hypertension Continue Coreg, lisinopril 3. GERD Continue omeprazole 4. Hepatitis C Chronic, monitor 5. Tobacco abuse Cessation counseling provided 6. Febrile episode of unknown origin UA negative, chest x-ray without any cardio pulmonary disease, blood culture negative to date DVT prophylaxis: Bilateral SCDs Dominic Field MD Mar 16, 2017 11:13
[2017-03-16] MEDS ORDERED: ASPI81 PO (11:19)
[2017-03-16] MEDS ORDERED: BRIL90TA PO (11:19)
[2017-03-16] MEDS ORDERED: CARV6.25 PO (11:19)
--- NOTE | 2017-03-16 11:24 | HHI.DS ---
Discharge Summary Admission Date Mar 13, 2017 at 09:54 Discharge Date: Mar 16, [address] elevation mi, htn by history (1) Multi-vessel coronary artery stenosis ICD Code: I25.10 - Atherosclerotic heart disease of [place] coronary artery without angina pectoris (2) STEMI (ST elevation myocardial infarction) ICD Code: I21.3 - ST elevation (STEMI) myocardial infarction of unspecified site (3) History of hepatitis C ICD Code: Z86.19 - Personal history of other infectious and parasitic diseases Status: Acute (4) History of hypertension ICD Code: Z86.79 - Personal history of other diseases of the circulatory system Status: Acute Procedures PTCA of OM1 and PTCA/stent of RCA/PLV performed Brief History - From Admission 62-year-old male with a past medical history significant for previous prostate cancer, hypertension, GERD and hepatitis C presents to the emergency department with chest pain that began on Pheba Luana. He endorses accompanying shortness of breath and diaphoresis. In the emergency department, he was found to be having an ST segment cardiology infection. Cardiac catheterization showed severe extensive multivessel coronary disease with ischemic cardiomyopathy. Angioplasty of the first marginal artery and angioplasty with stenting of the right coronary artery was performed. Patient continues to report chest pain however states it is improved from when he came into the ED. CBC/BMP: 03/16/17 0451 03/16/17 0451 Significant Findings Laboratory Tests Test 03/13/17 21:27 03/13/17 23:30 03/14/17 08:23 03/16/17 04:51 White Blood Count 14.7 TH/MM3 (4.0-11.0) 14.8 TH/MM3 (4.0-11.0) Red Blood Count 4.33 MIL/MM3 (4.50-5.90) 4.23 MIL/MM3 (4.50-5.90) 3.89 MIL/MM3 (4.50-5.90) Hematocrit 38.2 % (39.0-51.0) 37.8 % (39.0-51.0) 34.9 % (39.0-51.0) Platelet Count 139 TH/MM3 (150-450) 130 TH/MM3 (150-450) 144 TH/MM3 (150-450) Neutrophils (%) (Auto) 76.9 % (16.0-70.0) 79.2 % (16.0-70.0) Monocytes (%) (Auto) 12.0 % (0.0-8.0) 8.5 % (0.0-8.0) 12.6 % (0.0-8.0) Neutrophils # (Auto) 11.4 TH/MM3 (1.8-7.7) 11.7 TH/MM3 (1.8-7.7) Monocytes # (Auto) 1.8 TH/MM3 (0-0.9) 1.3 TH/MM3 (0-0.9) 1.2 TH/MM3 (0-0.9) Urine Specific [place] GREATER THAN 1.050 Urine Protein 30 mg/dL (NEG-TRACE) Urine Ketones 10 mg/dL (NEG) Urine Urobilinogen 4.0 MG/DL (LESS THAN Urine Bacteria RARE /hpf (NONE) Urine Mucus FEW /lpf (OCC) Hemoglobin 12.7 GM/DL (13.0-17.0) 11.9 GM/DL (13.0-17.0) Random Glucose 136 MG/DL (74-106) Albumin 2.6 GM/DL (3.4-5.0) Aspartate Amino Transf (AST/SGOT) 223 U/L (15-37) Alanine Aminotransferase (ALT/SGPT) 95 U/L (12-78) Sodium Level 135 MEQ/L (136-145) Potassium Level 3.3 MEQ/L (3.5-5.1) 3.3 MEQ/L (3.5-5.1) Estimat Glomerular Filtration Rate 85 ML/MIN (>89) 84 ML/MIN (>89) Total Creatine Kinase 533 U/L (39-308) Creatine Kinase MB 11.5 NG/ML (0.5-3.6) Calcium Level 8.4 MG/DL (8.5-10.1) Imaging Last Impressions Chest X-Ray 03/13/17 0999 Signed Impressions: Service Date/Time: Monday, March 13, 2017 09:48 - CONCLUSION: No acute disease. José Manuel Shanks MD PE at Discharge GENERAL: NAD SKIN: Warm and dry. HEAD: Normocephalic. EYES: No scleral icterus. No injection or drainage. NECK: Supple, trachea midline. No JVD or lymphadenopathy. CARDIOVASCULAR: Regular rate and rhythm without murmurs, gallops, or rubs. RESPIRATORY: Breath sounds equal bilaterally. No accessory muscle use. GASTROINTESTINAL: Abdomen soft, non-tender, nondistended. MUSCULOSKELETAL: No cyanosis, or edema. BACK: Nontender without obvious deformity. No CVA tenderness. Hospital Course Patient was admitted secondary to STEMI/CAD/multivessel CAD for which cardiology was consulted and he underwent PTCA of OM1 and PTCA/stent of RCA/PLV . Patient was started on Brilinta and ASA. He was continued on Coreg, lisinopril. Statin is contraindicated secondary to liver disease and Hepatitis C. DVT prophylaxis was provided. Patient's condition improved prior to discharge Pt Condition on Discharge: Good Discharge Disposition: Discharge Home Discharge Time: > 30 minutes Discharge Instructions DIET: Follow Instructions for: Heart Healthy Diet Activities you can perform: Regular-No Restrictions Follow up Referrals: Cardiology PCP Follow-up - 1 Week New Medications: Aspirin (Tgt Aspirin) 81 Mg Chw 81 MG PO DAILY for Prevent Blood Clot, #30 EA Carvedilol (Coreg) 6.25 Mg Tab 6.25 MG PO BID for Blood Pressure Management, #60 TAB 3 Refills Ticagrelor (Brilinta) 90 Mg Tab 90 MG PO BID for Prevent Blood Clot, #60 TAB 3 Refills Continued Medications: Lisinopril (Lisinopril) 2.5 Mg Tab 2.5 MG PO DAILY, #30 TAB 0 Refills Omeprazole (Omeprazole) 40 Mg Cap 40 MG PO DAILY PRN for INDIGESTION, #30 CAP 0 Refills Discontinued Medications: Amlodipine (Norvasc) 5 Mg Tab 5 MG PO DAILY for Blood Pressure Management, #30 TAB 0 Refills Metoprolol Tartrate (Metoprolol Tartrate) 25 Mg Tab 25 MG PO DAILY, #30 TAB 0 Refills Dominic Field MD Mar 16, 2017 11:24
--- NOTE | 2017-03-16 15:57 | MB ---
cc: MARKEL YOUNG DATE OF CONSULTATION: 03/13/2017. HISTORY OF PRESENT ILLNESS: This is a 62-year-old black male with history of prostate cancer, hypertension, Gastroesophageal reflux disease, hepatitis C and surgery for a liver tumor. He developed chest pain on Jonathan Luana. He finally presented to the emergency room two days later and was diagnosed with acute myocardial infarction. He continues to have chest pain and is referred for emergent cardiac catheterization. PAST MEDICAL HISTORY: His past medical history is positive for: 1. Prostate cancer status post radiation. 2. Hypertension. 3. Gastroesophageal reflux disease. 4. Hepatitis C. 5. Resection of liver tumor. 6. Cholecystectomy. MEDICATIONS: Medications at home include: 1. Norvasc. 2. Lisinopril. 3. Metoprolol. 4. Omeprazole. ALLERGIES: 1. TYLENOL - INTOLERANCE. 2. ASPIRIN WHICH HE DOES NOT TAKE DUE TO HEPATITIS C BUT IS NOT ALLERGIC PER SE. FAMILY HISTORY: Family history is negative for heart disease. SOCIAL HISTORY: The patient is a smoker. He drinks alcohol occasionally. He smokes marijuana. PHYSICAL EXAMINATION: VITAL SIGNS: Blood pressure 150/85, pulse 90. NECK: 2+ carotid upstrokes, no bruits. LUNGS: Clear. HEART: Regular rate and rhythm with no murmurs, rubs or gallops. ABDOMEN: Abdomen soft. No bruits. EXTREMITIES: Without edema. 2+ distal pulses. NEUROLOGIC: Grossly nonfocal. EKGS: EKG was reviewed and showed sinus tachycardia, left atrial enlargement, anterior wall myocardial infarction. Diffuse T wave changes. LABORATORY DATA: Hemoglobin 11.9, potassium 3.8, creatinine 1.1. Troponin greater than 440. CK 1310. DIAGNOSIS: 1. Acute S-T elevation myocardial function. 2. Coronary artery disease. 3. History of hepatitis C. 4. Status post liver mass excision. 5. Cirrhosis. 6. Hypertension. DISPOSITION: Mr. Davis will undergo emergent cardiac catheterization and coronary intervention. He understands the risks and benefits and wishes to proceed. MD ISABELLA Lainez/ANDREEA /1:59 PM /3:34 PM
== END 2017-03-16 12:11 | disposition home or self-care (01) | DRG 249 ==
LOC: NEPE 09:37 → NEDA 09:54 → HCIS 11:40
PROVIDERS: ADMIT Hospitalist; ATTEND Hospitalist
PROC: 02703FZ Dilation of Coronary Artery, One Artery with Three Intraluminal Devices, Percutaneous Approach (ICD-10-PCS; principal; 2017-03-13)
PROC: 02703ZZ Dilation of Coronary Artery, One Artery, Percutaneous Approach (ICD-10-PCS; 2017-03-13)
PROC: 4A023N7 Measurement of Cardiac Sampling and Pressure, Left Heart, Percutaneous Approach (ICD-10-PCS; 2017-03-13)
PROC: B2111ZZ Fluoroscopy of Multiple Coronary Arteries using Low Osmolar Contrast (ICD-10-PCS; 2017-03-13)
PROC: B2151ZZ Fluoroscopy of Left Heart using Low Osmolar Contrast (ICD-10-PCS; 2017-03-13)
PROC: B31N1ZZ Fluoroscopy of Other Upper Arteries using Low Osmolar Contrast (ICD-10-PCS; 2017-03-13)
DX: I21.3 ST elevation (STEMI) myocardial infarction of unspecified site (principal); I10 Essential (primary) hypertension; I25.10 Atherosclerotic heart disease of native coronary artery without angina pectoris; B19.20 Unspecified viral hepatitis C without hepatic coma; F17.210 Nicotine dependence, cigarettes, uncomplicated; K21.9 Gastro-esophageal reflux disease without esophagitis; I25.5 Ischemic cardiomyopathy; K59.00 Constipation, unspecified; R50.9 Fever, unspecified; Z86.73 Personal history of transient ischemic attack (TIA), and cerebral infarction without residual deficits; Z85.46 Personal history of malignant neoplasm of prostate; Z92.3 Personal history of irradiation; Z88.8 Allergy status to other drugs, medicaments and biological substances
CPT/HCPCS: 71010; 80048; 80053; 80061; 81001; 82310; 82435; 82550; 82552; 82565; 82947; 83735; 83880; 84132; 84295; 84484; 84520; 85002; 85025; 85610; 85730; 87040; 92921; 92941; 93005; 93458; 96374; 99152; C1725; C1760; C1769; C1876; C1887; C1893; G0269; J1644; J2250; J2270; J3010

== ENCOUNTER 2017-07-09 12:05 | Emergency (ER) | payer MEDICARE, MEDICAID ==
[~2017-07-09] VITALS: Ht 180.3 cm; Wt 63.2 kg
[~2017-07-09 12:05] MED LIST changes: -AMLO5 PO; +ASPI81 PO; +BRIL90TA PO; +CARV6.25 PO; -METO25TA3 PO
[2017-07-09 12:13] VITALS: BP 105/62; PULSE 75; RESP 20; TEMP 98.3; O2SAT 100
--- NOTE | 2017-07-09 13:00 | RADRPT ---
EXAM DATE/TIME: 07/09/2017 12:33 [facility] COMPARISON: No previous studies available for comparison. INDICATIONS : Chest pain and coughing for the past few days MEDICAL HISTORY : Cardiovascular disease. SURGICAL HISTORY : Coronary artery stent. ENCOUNTER: Initial ACUITY: 3 days PAIN SCORE: 10/10 LOCATION: Bilateral chest FINDINGS: PA and lateral views of the chest demonstrate the lungs to be symmetrically aerated without evidence of mass, infiltrate or effusion. The cardiomediastinal contours are unremarkable. Osseous structure s are intact. CONCLUSION: No acute disease. There is no pneumonia. Greg Malik MD on July 09, 2017 at 12:57 Board Certified Radiologist. This report was verified electronically.
[2017-07-09 13:09] LABS: AUTOMATED NEUTROPHIL # 5.5 TH/MM3 (1.8-7.7); BASOPHIL % 0.4 % (0.0-2.0); EOSINOPHIL # 0.4 TH/MM3 (0-0.4); EOSINOPHIL % 4.3 % (0.0-4.0); HEMATOCRIT 41.7 % (39.0-51.0); HEMOGLOBIN 14.2 GM/DL (13.0-17.0); LYMPH % 27.6 % (9.0-44.0); LYMPHOCYTE # 2.7 TH/MM3 (1.0-4.8); MEAN CORPUSCULAR HEMOGLOBIN 29.3 PG (27.0-34.0); MEAN CORPUSCULAR HGB CONC 34.1 % (32.0-36.0); MEAN PLATELET VOLUME 9.7 FL (7.0-11.0); MONO % 11.2 % (0.0-8.0); MONOCYTE # 1.1 TH/MM3 (0-0.9); NEUT % 56.5 % (16.0-70.0); PLATELET COUNT 143 TH/MM3 (150-450); RED BLOOD COUNT 4.85 MIL/MM3 (4.50-5.90); RED CELL DISTRIBUTION WIDTH 15.7 % (11.6-17.2); WHITE BLOOD COUNT 9.8 TH/MM3 (4.0-11.0)
[2017-07-09 13:19] LABS: INTERNATIONAL NORMALIZED RATIO 1.1 RATIO; PROTHROMBIN TIME - PATIENT 11.3 SEC (9.8-11.6)
[2017-07-09 13:21] LABS: ALBUMIN 3.4 GM/DL (3.4-5.0); ALT (GPT) 23 U/L (12-78); AST (GOT) 19 U/L (15-37); BICARBONATE 26.9 MEQ/L (21.0-32.0); BLOOD UREA NITROGEN 13 MG/DL (7-18); CHLORIDE 107 MEQ/L (98-107); CREATININE 1.37 MG/DL (0.60-1.30); GLOMERULAR FILTRATION RATE 63 ML/MIN (>89); GLUCOSE,RANDOM 146 MG/DL (74-106); MAGNESIUM 2.4 MG/DL (1.5-2.5); SODIUM (NA) 140 MEQ/L (136-145)
[2017-07-09 13:26] LABS: ALKALINE PHOSPHATASE 59 U/L (45-117); TOTAL BILIRUBIN ADULT 0.8 MG/DL (0.2-1.0); TROPONIN I LESS THAN 0.02 NG/ML (0.02-0.05)
[2017-07-09 13:54] VITALS: BP 123/73; PULSE 70; RESP 16; TEMP 97.8; O2SAT 99
--- NOTE | 2017-07-09 14:38 | PD ---
HPI Chief Complaint: Respiratory Symptoms Time Seen by Provider: 13:53 Travel History International Travel<30 days: No Contact w/Intl Traveler<30days: No Traveled to known affect area: No History of Present Illness HPI 62 YO M with PMH of hep C, cirrhosis, CAD s/p stenting x 3, liver CA, prostate CA on Brilinta presents to the ED for evaluation of 3 day history of rhinorrhea , sore throat and nonproductive cough. He endorses SOB. He denies CP, palpitations, fever, chills, N/V. Also complains of 2 day history of dark urine. Endorses 5/10 intermittent pain in the left lower back. No alleviating of exacerbating factors reported. Denies dysuria, penile discharge, scrotal pain. No treatment attempted at home. PFSH Past Medical History Arthritis: Yes Asthma: No Autoimmune Disease: No Blood Disorders: No Anxiety: Yes Depression: Yes Heart Rhythm Problems: No Cancer: Yes (PROSTATE/ LIVER ) Cardiovascular Problems: Yes (this admission) High Cholesterol: No Chemotherapy: No Chest Pain: Yes Congestive Heart Failure: No COPD: No Cerebrovascular Accident: Yes (2007) Diabetes: No Diminished Hearing: No Endocrine: No Gastrointestinal Disorders: Yes (REFLUX, HEPATIC MASS, CIRRHOSIS) GERD: No Glaucoma: No Genitourinary: Yes (PROSTATE CA) Headaches: Yes Hepatitis: Yes (HX HEP C, LIVER SCLEROSIS) Hiatal Hernia: No Heparin Induced Thrombocytopen: Yes Hypertension: Yes Immune Disorder: No Implanted Vascular Access Dvce: Yes Kidney Stones: No Medical other: Yes Musculoskeletal: Yes (OA) Neurologic: No Psychiatric: No Reproductive: No Respiratory: No Immunizations Current: No Migraines: No Myocardial Infarction: No Radiation Therapy: No Renal Failure: No Seizures: No Sickle Cell Disease: No Sleep Apnea: No Thyroid Disease: No Ulcer: No Tetanus Vaccination: > 5 Years Influenza Vaccination: Yes PNEUMOCCOCAL Vaccine (Year): 2 Past Surgical History Abdominal Surgery: Yes (CHOLECYSTECTOMY, LIVER WEDGE BIOPSY) AICD: No Appendectomy: No Arteriovenous Shunt: No Body Medical Devices: heart stents this admission Cardiac Surgery: No Cholecystectomy: No Ear Surgery: No Endocrine Surgery: No Eye Surgery: No Genitourinary Surgery: No Insulin Pump: No Joint Replacement: No Oral Surgery: No Pacemaker: No Thoracic Surgery: No Other Surgery: Yes Social History Alcohol Use: No (FORMER) Tobacco Use: Yes (2-4 CIG/DAY) Substance Use: No Allergies-Medications (Allergen,Severity, Reaction): Coded Allergies: acetaminophen (Verified Allergy, Severe, HIVES, 07/09/17) aspirin (Verified Allergy, Severe, DOESN'T TAKE DUE TO HEPATITIS C, ) zolpidem (Verified Adverse Reaction, Severe, Hypotension, 07/09/17) Reported Meds & Prescriptions Reported Meds & Active Scripts Active Tgt Aspirin (Aspirin) 81 Mg Chw 81 Mg PO DAILY Coreg (Carvedilol) 6.25 Mg Tab 6.25 Mg PO BID Brilinta (Ticagrelor) 90 Mg Tab 90 Mg PO BID Reported Omeprazole 40 Mg Cap 40 Mg PO DAILY PRN Lisinopril 2.5 Mg Tab 2.5 Mg PO DAILY Review of Systems Except as stated in HPI: all other systems reviewed are Neg Physical Exam Narrative GENERAL: Well-nourished, well-developed thin -Emirati male in no acute distress. SKIN: Warm and dry. HEAD: Normocephalic. Atraumatic. EYES: No scleral icterus. No injection or drainage. PERRLA. EOMI. ENT: Pearly cardoza tympanic membranes bilaterally. Nasal mucosa is moist. Oropharynx without erythema, edema or exudate. NECK: Supple, trachea midline. No JVD or lymphadenopathy. CARDIOVASCULAR: Regular rate and rhythm without murmurs, gallops, or rubs. RESPIRATORY: Breath sounds clear and equal bilaterally. No accessory muscle use. GASTROINTESTINAL: Abdomen soft, non-tender, nondistended. + Bowel sounds MUSCULOSKELETAL: No cyanosis, or edema. Moves extremities spontaneously. BACK: Nontender without obvious deformity. Positive left-sided CVA tenderness. Data Data Last Documented VS Vital Signs Date Time Temp Pulse Resp B/P (MAP) Pulse Ox O2 Delivery O2 Flow Rate FiO2 07/09/17 16:14 97.8 70 18 119/84 (96) 98 Room Air Orders Orders Electrocardiogram (07/09/17 12:16) Ckmb (Isoenzyme) Profile (07/09/17 12:16) Complete Blood Count With Diff (07/09/17 12:16) Comprehensive Metabolic Panel (07/09/17 12:16) Magnesium (Mg) (07/09/17 12:16) Prothrombin Time / Inr (Pt) (07/09/17 12:16) Act Partial Throm Time (Ptt) (07/09/17 12:16) Troponin I (07/09/17 12:16) Chest, Pa & Lat (07/09/17 12:16) B-Type Natriuretic Peptide (07/09/17 12:16) CKMB (07/09/17 12:45) CKMB% (07/09/17 12:45) Urinalysis - C+S If Indicated (07/09/17 14:03) Sodium Chlor 0.9% 1000 Ml Inj (Ns 1000 M (07/09/17 16:15) Ed Discharge Order (07/09/17 16:55) Labs Laboratory Tests Test 07/09/17 12:45 07/09/17 16:00 White Blood Count 9.8 TH/MM3 Red Blood Count 4.85 MIL/MM3 Hemoglobin 14.2 GM/DL Hematocrit 41.7 % Mean Corpuscular Volume 86.0 FL Mean Corpuscular Hemoglobin 29.3 PG Mean Corpuscular Hemoglobin Concent 34.1 % Red Cell Distribution Width 15.7 % Platelet Count 143 TH/MM3 Mean Platelet Volume 9.7 FL Neutrophils (%) (Auto) 56.5 % Lymphocytes (%) (Auto) 27.6 % Monocytes (%) (Auto) 11.2 % Eosinophils (%) (Auto) 4.3 % Basophils (%) (Auto) 0.4 % Neutrophils # (Auto) 5.5 TH/MM3 Lymphocytes # (Auto) 2.7 TH/MM3 Monocytes # (Auto) 1.1 TH/MM3 Eosinophils # (Auto) 0.4 TH/MM3 Basophils # (Auto) 0.0 TH/MM3 CBC Comment DIFF FINAL Differential Comment Prothrombin Time 11.3 SEC Prothromb Time International Ratio 1.1 RATIO Activated Partial Thromboplast Time 30.5 SEC Blood Urea Nitrogen 13 MG/DL Creatinine 1.37 MG/DL Random Glucose 146 MG/DL Total Protein 8.0 GM/DL Albumin 3.4 GM/DL Calcium Level 9.0 MG/DL Magnesium Level 2.4 MG/DL Alkaline Phosphatase 59 U/L Aspartate Amino Transf (AST/SGOT) 19 U/L Alanine Aminotransferase (ALT/SGPT) 23 U/L Total Bilirubin 0.8 MG/DL Sodium Level 140 MEQ/L Potassium Level 4.0 MEQ/L Chloride Level 107 MEQ/L Carbon Dioxide Level 26.9 MEQ/L Anion Gap 6 MEQ/L Estimat Glomerular Filtration Rate 63 ML/MIN Total Creatine Kinase 111 U/L Creatine Kinase MB LESS THAN 0.5 NG/ML Troponin I LESS THAN 0.02 NG/ML B-Type Natriuretic Peptide 46 PG/ML Urine Color YELLOW Urine Turbidity CLEAR Urine pH 5.5 Urine Specific [place] 1.031 Urine Protein 30 mg/dL Urine Glucose (UA) NEG mg/dL Urine Ketones 10 mg/dL Urine Occult Blood NEG Urine Nitrite NEG Urine Bilirubin NEG Urine Urobilinogen 4.0 MG/DL Urine Leukocyte Esterase NEG Urine RBC LESS THAN 1 /hpf Urine WBC 1 /hpf Urine Mucus MOD /lpf Microscopic Urinalysis Comment CULT NOT INDICATED MDM Medical Decision Making Medical Screen Exam Complete: Yes Emergency Medical Condition: Yes Differential Diagnosis Viral syndrome versus seasonal allergies versus UTI versus bleeding versus other Narrative Course 62 YO M with PMH of hep C, cirrhosis, CAD s/p stenting x 3, liver CA, prostate CA on Brilinta presents to the ED for evaluation of 3 day history of rhinorrhea , sore throat and nonproductive cough. Also complains of 2 day history of dark urine. Endorses 5/10 intermittent pain in the left lower back. Patient is afebrile, pulse 70, 98% oxygenation on room air, respiratory rate 18, BP 119/84 on presentation. Physical exam reveals a thin -Emirati male in no acute distress. There is left CVA tenderness, exam otherwise reassuring. The patient was administered 1 L normal saline. EKG rate 77, sinus rhythm. Normal intervals. Normal axis. Lat and Inf T waves inverted. Reviewed by Dr. tS CXR: No acute disease. No pneumonia per radiology read. Cardiac enzymes negative 1. BNP: 46. CBC without concerning abnormalities. CMP unremarkable. UA, no culture indicated. I discussed the results of the workup with the patient. He is reassured that he does not have pneumonia which was his concern. He is instructed to follow- up with his primary care doctor. He is agreeable to the care plan. He is stable and discharged home. Diagnosis Primary Impression: Cough Referrals: Primary Care Physician Additional Instructions: Rest, hydrate. Push fluids such as sports drinks, Pedialyte, popsicles, clear broth. Take OTC medications and cough drops for cough. Follow-up with the primary care provider this week. Return to the ED for any urgent or emergent medical condition. Disposition: 01 DISCHARGE HOME Condition: Stable Erkia Teran Jul 09, 2017 14:38
[2017-07-09 16:14] VITALS: BP 119/84; PULSE 70; RESP 18; TEMP 97.8; O2SAT 98
[2017-07-09] MEDS ORDERED: SODIUM CHLOR 0.9% 1000 ML INJ 1,000 ML IV ONE (16:15)
[2017-07-09 16:28] LABS: BILIRUBIN, URINE NEG (NEG); BLOOD, URINE NEG (NEG); GLUCOSE,URINE NEG (NEG); KETONE, URINE 10 mg/dL (NEG); MUCUS URINE MOD /lpf (OCC); NITRITE,URINE NEG (NEG); PH, URINE 5.5 (5.0-8.5); URINE COLOR YELLOW (YELLW/STRAW); URINE LEUKOCYTE ESTERASE NEG (NEG)
[2017-07-09 17:08] VITALS: BP 130/81; TEMP 97.8
--- NOTE | 2017-07-09 20:49 | EKG ---
Date Performed: 07/09/2017 Time Performed: 12:39:54 PTAGE: 62 years EKG: Sinus rhythm LOW QRS VOLTAGE IN EXTREMITY LEADS INFERIOR MYOCARDIAL INFARCTION T-WAVE ABNORMALITY, CONSIDER INFER IOR AND LATERAL ISCHEMIA EARLY TRANSITION ABNORMAL ECG PREVIOUS TRACING : 07/09/2017 12.39 Compared to previous tracing, anterolateral and inferior ST elevation is no longer evident, lateral T wave inversion is now present. DOCTOR: Naseem Flores Interpretating Date/Time 07/16/2017 12:51:14
== END 2017-07-09 17:08 | disposition home or self-care (01) ==
LOC: NEPE 12:05
DX: R05 Cough (principal); R94.31 Abnormal electrocardiogram [ECG] [EKG]; M19.90 Unspecified osteoarthritis, unspecified site; F32.9 Major depressive disorder, single episode, unspecified; B19.20 Unspecified viral hepatitis C without hepatic coma; I10 Essential (primary) hypertension; I25.10 Atherosclerotic heart disease of native coronary artery without angina pectoris; Z86.73 Personal history of transient ischemic attack (TIA), and cerebral infarction without residual deficits; Z85.46 Personal history of malignant neoplasm of prostate; Z95.5 Presence of coronary angioplasty implant and graft; Z72.0 Tobacco use; Z79.02 Long term (current) use of antithrombotics/antiplatelets; Z85.05 Personal history of malignant neoplasm of liver
CPT/HCPCS: 71046; 80053; 81001; 82550; 82552; 83735; 83880; 84484; 85025; 85610; 85730; 93005; 96360; 99285; J7030

== ENCOUNTER → 2017-08-09 | Outpatient (CLI) | payer MEDICARE, MEDICAID ==
[2017-08-09 16:01] LABS: AUTOMATED NEUTROPHIL # 3.1 TH/MM3 (1.8-7.7); BASOPHIL # 0.1 TH/MM3 (0-0.2); BASOPHIL % 0.9 % (0.0-2.0); EOSINOPHIL # 0.2 TH/MM3 (0-0.4); EOSINOPHIL % 3.5 % (0.0-4.0); HEMATOCRIT 39.9 % (39.0-51.0); HEMOGLOBIN 13.4 GM/DL (13.0-17.0); LYMPH % 39.5 % (9.0-44.0); LYMPHOCYTE # 2.8 TH/MM3 (1.0-4.8); MEAN CELL VOLUME 85.6 FL (80.0-100.0); MEAN CORPUSCULAR HEMOGLOBIN 28.8 PG (27.0-34.0); MEAN CORPUSCULAR HGB CONC 33.7 % (32.0-36.0); MEAN PLATELET VOLUME 9.3 FL (7.0-11.0); MONOCYTE # 0.8 TH/MM3 (0-0.9); NEUT % 44.1 % (16.0-70.0); PLATELET COUNT 142 TH/MM3 (150-450); RED BLOOD COUNT 4.66 MIL/MM3 (4.50-5.90); RED CELL DISTRIBUTION WIDTH 15.4 % (11.6-17.2)
[2017-08-09 16:11] LABS: INTERNATIONAL NORMALIZED RATIO 1.1 RATIO; PROTHROMBIN TIME - PATIENT 10.9 SEC (9.8-11.6)
[2017-08-09 16:25] LABS: ALKALINE PHOSPHATASE 63 U/L (45-117); TOTAL BILIRUBIN ADULT 0.5 MG/DL (0.2-1.0); TOTAL PROTEIN 7.7 GM/DL (6.4-8.2)
[2017-08-09 16:27] LABS: ALBUMIN 3.7 GM/DL (3.4-5.0); ALT (GPT) 25 U/L (12-78); AST (GOT) 31 U/L (15-37); BICARBONATE 25.3 MEQ/L (21.0-32.0); BLOOD UREA NITROGEN 16 MG/DL (7-18); CALCIUM 9.1 MG/DL (8.5-10.1); CHLORIDE 111 MEQ/L (98-107); CREATININE 1.34 MG/DL (0.60-1.30); GLOMERULAR FILTRATION RATE 65 ML/MIN (>89); GLUCOSE,FASTING 86 MG/DL (74-99); SODIUM (NA) 145 MEQ/L (136-145)
== END ==
LOC: CLAB 15:35 → EDSTATUS 15:53
PROVIDERS: ATTEND Physician Assistant Medical
DX: K74.60 Unspecified cirrhosis of liver (principal)
CPT/HCPCS: 36415; 80053; 82105; 85025; 85610

== ENCOUNTER 2017-09-08 17:04 | Emergency (ER) | payer MEDICARE, MEDICAID ==
[~2017-09-08] VITALS: Ht 177.8 cm; Wt 60.0 kg
[2017-09-08 17:10] VITALS: BP 126/68; PULSE 72; RESP 16; TEMP 98.4; O2SAT 99
[2017-09-08] MEDS ORDERED: KETOROLAC TROMETHAMINE 60 MG/2 ML (IM) VIAL IM ONE (18:00)
[2017-09-08] MEDS ORDERED: ORPHENADRINE INJ 60 MG/2 ML AMP IM ONE (18:00)
[2017-09-08] MEDS ORDERED: DEXAMETHASONE SOD PHOS 20 MG/5 ML VIAL IM ONE (18:00)
--- NOTE | 2017-09-08 18:10 | PD ---
HPI Chief Complaint: Back/ Neck Pain or Injury Time Seen by Provider: 17:43 Travel History International Travel<30 days: No Contact w/Intl Traveler<30days: No Traveled to known affect area: No History of Present Illness HPI 62-year-old -Micron[place] male presents emergency department with four-day history of left lower lumbar pain and radicular symptoms which she has had previously in the past. Patient does have a history of colon cancer and prostate cancer however he is followed by Dr. Henderson and his last PSA was less than 0.3. He denies any specific injury. He has had similar symptoms in the past, treated well in the past with shots here at the ED. He denies changes in his bowels or urine. He denies weakness. Pain is worse with movement and ambulation. Pain is currently 8 out of 10. He states it is more of a spasm than pain. Patient is allergic to acetaminophen, aspirin, and zolpidem. PFSH Past Medical History Hx Anticoagulant Therapy: Yes Arthritis: Yes Asthma: No Autoimmune Disease: No Blood Disorders: No Anxiety: Yes Depression: Yes Heart Rhythm Problems: No Cancer: Yes (PROSTATE/ LIVER ) Cardiovascular Problems: Yes (3 stints and OR) High Cholesterol: No Chemotherapy: No Chest Pain: Yes Congestive Heart Failure: No COPD: No Cerebrovascular Accident: Yes (x 1 2007) Diabetes: No Diminished Hearing: No Endocrine: No Gastrointestinal Disorders: Yes (REFLUX, HEPATIC MASS, CIRRHOSIS) GERD: No Glaucoma: No Genitourinary: Yes (PROSTATE CA) Headaches: Yes Hepatitis: Yes (HX HEP C, LIVER SCLEROSIS) Hiatal Hernia: No Heparin Induced Thrombocytopen: Yes Hypertension: Yes Immune Disorder: No Implanted Vascular Access Dvce: Yes Kidney Stones: No Medical other: No Musculoskeletal: Yes (OA) Neurologic: No Psychiatric: No Reproductive: No Respiratory: No Immunizations Current: No Migraines: No Myocardial Infarction: No Radiation Therapy: No Renal Failure: No Seizures: No Sickle Cell Disease: No Sleep Apnea: No Thyroid Disease: No Ulcer: No PNEUMOCCOCAL Vaccine (Year): 2 ?: Not Past Surgical History Abdominal Surgery: Yes (CHOLECYSTECTOMY, LIVER WEDGE BIOPSY) AICD: No Appendectomy: No Arteriovenous Shunt: No Body Medical Devices: heart stents this admission Cardiac Surgery: No Cholecystectomy: No Ear Surgery: No Endocrine Surgery: No Eye Surgery: No Genitourinary Surgery: No Insulin Pump: No Joint Replacement: No Neurologic Surgery: No Oral Surgery: No Pacemaker: No Thoracic Surgery: No Other Surgery: Yes Social History Alcohol Use: No (FORMER) Tobacco Use: Yes (2-4 CIG/DAY) Substance Use: No Allergies-Medications (Allergen,Severity, Reaction): Coded Allergies: acetaminophen (Verified Allergy, Severe, HIVES, 07/09/17) aspirin (Verified Allergy, Severe, DOESN'T TAKE DUE TO HEPATITIS C, ) zolpidem (Verified Adverse Reaction, Severe, Hypotension, 07/09/17) Reported Meds & Prescriptions Reported Meds & Active Scripts Active Tgt Aspirin (Aspirin) 81 Mg Chw 81 Mg PO DAILY Coreg (Carvedilol) 6.25 Mg Tab 6.25 Mg PO BID Brilinta (Ticagrelor) 90 Mg Tab 90 Mg PO BID Reported Omeprazole 40 Mg Cap 40 Mg PO DAILY PRN Lisinopril 2.5 Mg Tab 2.5 Mg PO DAILY Review of Systems Except as stated in HPI: all other systems reviewed are Neg General / Constitutional: No: Fever Eyes: No: Visual changes HENT: No: Headaches Cardiovascular: No: Chest Pain or Discomfort Respiratory: No: Shortness of Breath Gastrointestinal: No: Abdominal Pain Genitourinary: No: Dysuria Musculoskeletal: Positive: Myalgias, Arthralgias, Limited ROM, Pain Skin: No Rash Neurologic: No: Weakness Psychiatric: No: Depression Endocrine: No: Polydipsia Hematologic/Lymphatic: No: Easy Bruising Physical Exam Narrative GENERAL: Patient appears in no acute distress. SKIN: Warm and dry. Normal color. Normal turgor. No rash. HEAD: Atraumatic. Normocephalic. EYES: Pupils equal and round. No scleral icterus. No injection or drainage. ENT: No nasal bleeding or discharge. Mucous membranes pink and moist. NECK: Trachea midline. Supple and nontender per CARDIOVASCULAR: Regular rate and rhythm. RESPIRATORY: No accessory muscle use. Clear to auscultation. Breath sounds equal bilaterally. GASTROINTESTINAL: Abdomen soft, non-tender, nondistended. Hepatic and splenic margins not palpable. MUSCULOSKELETAL: Extremities without clubbing, cyanosis, or edema. No obvious deformities. Patient has pain with palpation along the left lumbar soft tissues into the sciatic notch. He has positive straight leg raise pain on the left at 40. Patient has no loss of function or decreased range of motion. NEUROLOGICAL: Awake and alert. No obvious cranial nerve deficits. Motor grossly within normal limits. Five out of 5 muscle strength in the arms and legs. Normal speech. PSYCHIATRIC: Appropriate mood and affect; insight and judgment normal. Data Data Last Documented VS Vital Signs Date Time Temp Pulse Resp B/P (MAP) Pulse Ox O2 Delivery O2 Flow Rate FiO2 09/08/17 17:10 98.4 72 16 126/68 (87) 99 Orders Orders Orphenadrine Inj (Norflex Inj) (09/08/17 18:00) Dexamethasone Inj (Decadron Inj) (09/08/17 18:00) Ketorolac Inj (Toradol Inj) (09/08/17 18:00) [facility] Medical Decision Making Medical Screen Exam Complete: Yes Emergency Medical Condition: Yes Medical Record Reviewed: Yes Differential Diagnosis Lumbago. Sciatica. Muscle spasm. Narrative Course Patient will be given Norflex 60 mg IM. Patient is given Decadron 10 mg IM Patient is given Toradol 30 mg IM Patient will be continued on prednisone 20 mg twice daily for 5 days. Patient continued on Norflex 100 mg twice daily for 7 days. Patient to follow-up with his primary care physician as needed or return to the emergency department with worsening symptoms. Diagnosis Primary Impression: Lumbago with sciatica, left side Qualified Codes: M54.42 - Lumbago with sciatica, left side Patient Instructions: General Instructions, Lower Back Exercises (ED), Lumbar Radiculopathy (ED) Additional Instructions: Patient will be given Norflex 60 mg IM. Patient is given Decadron 10 mg IM Patient is given Toradol 30 mg IM Patient will be continued on prednisone 20 mg twice daily for 5 days. Patient continued on Norflex 100 mg twice daily for 7 days. Patient to follow-up with his primary care physician as needed or return to the emergency department with worsening symptoms. Med/Other Pt SpecificInfo: Prescription(s) given Disposition: 01 DISCHARGE HOME Condition: Stable Ric Lei Sep 08, 2017 18:10
[2017-09-08] MEDS ORDERED: PRED20 PO (18:12)
[2017-09-08] MEDS ORDERED: ORPH100T2 PO (18:12)
[2017-09-08 18:49] VITALS: BP 124/78
== END 2017-09-08 18:51 | disposition home or self-care (01) ==
LOC: NEPD 17:04
DX: M54.42 Lumbago with sciatica, left side (principal); F17.210 Nicotine dependence, cigarettes, uncomplicated; I10 Essential (primary) hypertension
CPT/HCPCS: 96372; 99283; J1100; J1885; J2360

== ENCOUNTER 2018-05-03 15:18 | Observation (INO) ==
[2018-05-03] MEDS ORDERED: Pantoprazole Inj 80 MG in Sodium Chlor 0.9% Inj 50 ML IV.SIG ONE (16:40)
[2018-05-03 17:43] LABS: Baso % (Auto) 0.4 % (0.0-2.0); Eos # (Auto) 0.3 th/mm3 (0.0-0.4); Eos % (Auto) 5.1 % (0.0-4.0); Hematocrit 35.8 % (39.0-51.0); Hemoglobin 12.2 gm/dL (13.0-17.0); Lymph # (Auto) 2.6 th/mm3 (1.0-4.8); Lymph % (Auto) 46.7 % (9.0-44.0); Mean Corpuscular HGB Conc 34.2 % (32.0-36.0); Mean Corpuscular Hemoglobin 30.2 pg (27.0-34.0); Mean Corpuscular Volume 88.3 fL (80.0-100.0); Mean Platelet Volume 9.2 fL (7.0-11.0); Mono # (Auto) 0.8 th/mm3 (0.0-0.9); Mono % (Auto) 14.7 % (0.0-8.0); Neut # (Auto) 1.8 th/mm3 (1.8-7.7); Neut % (Auto) 33.1 % (16.0-70.0); Platelet Count 144 th/mm3 (150-450); Red Blood Count 4.05 mil/mm3 (4.50-5.90); Red Cell Distribution Width 13.8 % (11.6-17.2); White Blood Count 5.5 th/mm3 (4.0-11.0)
[2018-05-03 17:58] LABS: INR 1.1 Ratio; Prothrombin Time 10.8 sec (9.8-11.6)
[2018-05-03 18:08] LABS: Alanine Aminotransferase 21 U/L (12-78)
[2018-05-03 18:10] LABS: Alkaline Phosphatase 62 U/L (45-117); Total Protein 7.1 g/dL (6.4-8.2)
--- NOTE | 2018-05-03 18:13 | ED ---
HPI General Chief complaint: GI Bleed Stated complaint: Dark stools after colonoscopy Time Seen by Provider: 05/03/18 16:37 History of Present Illness HPI Narrative: 63 year old male with a past medical history CAD (s/p stent placement), hepitits C, liver cancer (s/p tumor resection), prostate cancer (s/ p radiation) who presents to the ED today for evaluation of 7 days of black bloody stools. He is currently on a blood thinner. Patient states that he had a colonoscopy in March. Patient denies abdominal pain, shortness of breath, chest pain, weakness, nausea/vomiting, or numbness/tingling. He is not in any pain at this time. He states compliance with his medication. Per patient when he had a colonoscopy had a polyp removed. Related Data Home Medications Medication Instructions Recorded Confirmed aspirin 81 mg PO DAILY 05/03/18 05/03/18 carvedilol 6.25 mg PO BID 05/03/18 05/03/18 lisinopril 2.5 mg PO DAILY 05/03/18 05/03/18 omeprazole 40 mg PO DAILY 05/03/18 05/03/18 ticagrelor [Brilinta] 60 mg PO BID 05/03/18 05/03/18 Allergies Allergy/AdvReac Type Severity Reaction Status Date / Time acetaminophen Allergy Severe HIVES Verified 05/03/18 17:08 aspirin Allergy Severe DOESN'T Verified 05/03/18 17:08 TAKE DUE TO HEPATITIS C zolpidem AdvReac Severe Hypotension Verified 05/03/18 17:08 Review of Systems ROS: all other systems reviewed are negative [facility] Medical History Medical History Hepatitis C (Acute) Hypertension (Acute) Liver cancer (Acute) Myocardial infarct (Acute) Prostate cancer (Acute) Surgical History Surgical History H/O heart artery stent (Acute) Social History Social History Substance History: No History of Abuse Smoking Status: Current every day smoker Tobacco Type: Cigarettes How Often Do You Have a Drink Containing Alcohol: Never Recent Travel in [facility] within the Last 8 Weeks: No Recent Out of Country Travel within the Last 8 Weeks: No Immunization History Tetanus Immunization: >5 Years Exam Narrative Exam Narrative: GENERAL: Well-appearing in no distress. SKIN: Focused skin assessment warm/dry. HEAD: Atraumatic. Normocephalic. EYES: Pupils equal and round. No scleral icterus. No injection or drainage. ENT: No nasal bleeding or discharge. Mucous membranes pink and moist. Tongue is midline. No Uvula deviation. NECK: Trachea midline. No JVD. CARDIOVASCULAR: Regular rate and rhythm. No murmur appreciated. RESPIRATORY: No accessory muscle use. Clear to auscultation. Breath sounds equal bilaterally. GASTROINTESTINAL: Abdomen soft, non-tender, nondistended. Hepatic and splenic margins not palpable. Rectal exam did not reveal any sign of hemorrhoids or signs of acute disease alert and black stool that was positive on Hemoccult. MUSCULOSKELETAL: No obvious deformities. No clubbing. No cyanosis. No edema. Full range of motion of the upper and lower extremities bilaterally. 2+ pulses bilaterally. NEUROLOGICAL: Awake and alert. No obvious cranial nerve deficits. Motor grossly within normal limits. Normal speech. PSYCHIATRIC: Appropriate mood and affect; insight and judgment normal. Procedures Hemaprompt Stool Procedural Steps Taken: specimen placed in appropriate test area, developer placed on specimen and control areas and controls appropriately positive and negative Hemaprompt Stool Result: positive Course Initial Documented Vital Signs Temperature 98.7 F 05/03/18 15:23 Pulse Rate 70 05/03/18 15:23 Respiratory Rate 18 05/03/18 15:23 Blood Pressure 141/72 H 05/03/18 15:23 Pulse Oximetry 100 05/03/18 15:23 Last Documented Vital Signs Temperature 98.8 F 05/03/18 16:50 Pulse Rate 65 05/03/18 17:14 Respiratory Rate 17 05/03/18 16:50 Blood Pressure 144/80 H 05/03/18 16:50 Pulse Oximetry 99 05/03/18 16:50 Medical Decision Making BJ Attestation BJ supervised visit: Yes Attestation: I, Dr. Walter, have reviewed the advance practice practitioner's documentation and am in agreement, met with the patient face to face, made the diagnosis, and the medical decision making was done by me. See his note for further details. This is a 63-year-old male with history of hep C, cirrhosis, hepatocellular CA treated with complete resection, prostate CA, CAD, here for evaluation of melena and bright red blood per rectum. Patient reports that he has had the symptoms for about a week. Other than melena he denies any other complaints. No chest pain or dyspnea. No weakness. He is concerned because he is on Brilinta. He states that on April 05 he had a colonoscopy and endoscopy done by patrol captain Dr. Juarez. He was off of his Brilinta for 5 days prior to this procedure, and restarted the medication the day after the procedure. He tells me that he had a polyp removed from his stomach. On exam he is resting comfortably. His vital signs are within normal limits. His H&H today is 12.2/36. Labs performed on 04/23/18 show an H&H of 13.3/39. His stool is heme positive and black mixed with some bright red blood. I informed the patient of all findings, and told him that I would like to keep him for overnight observation and GI evaluation. He tells me that he does not want to stay in the hospital because he feels well and does not have significant anemia. I told him that I would contact his patrol captain Dr. Juarez to get his advice. 6:50 PM I discussed the case with patrol captain Dr. Booker who is covering for Dr. Juarez who highly recommended the patient stay in the hospital for PPI therapy and serial H&H with GI consultation. This was conveyed to the patient and he has agreed to be admitted. Case discussed with hospitalist Dr. Tay Leary who will admit the patient to his service. MDM Narrative Medical decision making narrative: 63-year-old male who presents to the ED for evaluation of GI bleed. Patient was properly examined and was found to have signs and symptoms consistent with appears to be GI bleed. Labs and imaging ordered. Patient was given Protonix. Labs and imaging showed slightly reduced hemoglobin. Patient does have positive Hemoccult with melena and tarry stool. Case was discussed with my attending Dr. Thurman who spoke with Dr. Booker over the phone. The recommend admission. Case discussed with the patient agrees to admission. My attending himself spoke with Dr. Leary who agrees admission to his service. Medical Screen Exam Complete: Yes Emergency Medical Condition: Yes Differential Diagnosis Differential Diagnosis: GI bleed versus active bleeding versus bleeding with blood thinner versus diarrhea versus C. difficile Medical Records Medical records reviewed: Yes I reviewed the patient's medical records. Lab Data Lab results reviewed: Yes I reviewed the patient's lab results. Result diagrams: 05/03/18 17:15 05/03/18 17:15 Lab Results 05/03/18 05/03/18 05/03/18 Range/Units 17:15 17:15 17:15 WBC 5.5 (4.0-11.0) th/mm3 RBC 4.05 L (4.50-5.90) mil/mm3 Hgb 12.2 L (13.0-17.0) gm/dL Hct 35.8 L (39.0-51.0) % MCV 88.3 (80.0-100.0) fL MCH 30.2 (27.0-34.0) pg MCHC 34.2 (32.0-36.0) % RDW 13.8 (11.6-17.2) % Plt Count 144 L (150-450) th/mm3 MPV 9.2 (7.0-11.0) fL Neut % (Auto) 33.1 (16.0-70.0) % Lymph % (Auto) 46.7 H (9.0-44.0) % [place] % (Auto) 14.7 H (0.0-8.0) % Eos % (Auto) 5.1 H (0.0-4.0) % Baso % (Auto) 0.4 (0.0-2.0) % Neut # (Auto) 1.8 (1.8-7.7) th/mm3 Lymph # (Auto) 2.6 (1.0-4.8) th/mm3 [place] # (Auto) 0.8 (0.0-0.9) th/mm3 Eos # (Auto) 0.3 (0.0-0.4) th/mm3 Baso # (Auto) 0.0 (0.0-0.2) th/mm3 WBC Differential . Differential Comment Auto diff final PT 10.8 (9.8-11.6) sec INR 1.1 Ratio APTT 28.0 (23.4-31.7) sec Sodium 140 (136-145) meq/L Potassium 4.5 (3.5-5.1) meq/L Chloride 109 H (98-107) meq/L Carbon Dioxide 27.4 (21.0-32.0) meq/L Anion Gap 4 L (5-15) meq/L BUN 16 (7-18) mg/dL Creatinine 1.11 (0.60-1.30) mg/dL Estimated GFR 81 L (>89) mL/min Random Glucose 71 L (74-106) mg/dL Calcium 8.6 (8.5-10.1) mg/dL Magnesium 2.1 (1.5-2.5) mg/dL Total Bilirubin 0.2 (0.2-1.0) mg/dL AST 23 (15-37) U/L ALT 21 (12-78) U/L Alkaline Phosphatase 62 (45-117) U/L Total Protein 7.1 (6.4-8.2) g/dL Albumin 3.5 (3.4-5.0) g/dL Blood Type Blood Type Recheck Antibody Screen 05/03/18 Range/Units 17:15 WBC (4.0-11.0) th/mm3 RBC (4.50-5.90) mil/mm3 Hgb (13.0-17.0) gm/dL Hct (39.0-51.0) % MCV (80.0-100.0) fL MCH (27.0-34.0) pg MCHC (32.0-36.0) % RDW (11.6-17.2) % Plt Count (150-450) th/mm3 MPV (7.0-11.0) fL Neut % (Auto) (16.0-70.0) % Lymph % (Auto) (9.0-44.0) % [place] % (Auto) (0.0-8.0) % Eos % (Auto) (0.0-4.0) % Baso % (Auto) (0.0-2.0) % Neut # (Auto) (1.8-7.7) th/mm3 Lymph # (Auto) (1.0-4.8) th/mm3 [place] # (Auto) (0.0-0.9) th/mm3 Eos # (Auto) (0.0-0.4) th/mm3 Baso # (Auto) (0.0-0.2) th/mm3 WBC Differential Differential Comment PT (9.8-11.6) sec INR Ratio APTT (23.4-31.7) sec Sodium (136-145) meq/L Potassium (3.5-5.1) meq/L Chloride (98-107) meq/L Carbon Dioxide (21.0-32.0) meq/L Anion Gap (5-15) meq/L BUN (7-18) mg/dL Creatinine (0.60-1.30) mg/dL Estimated GFR (>89) mL/min Random Glucose (74-106) mg/dL Calcium (8.5-10.1) mg/dL Magnesium (1.5-2.5) mg/dL Total Bilirubin (0.2-1.0) mg/dL AST (15-37) U/L ALT (12-78) U/L Alkaline Phosphatase (45-117) U/L Total Protein (6.4-8.2) g/dL Albumin (3.4-5.0) g/dL Blood Type A Positive Blood Type Recheck Required Antibody Screen Negative Discharge Plan Discharge Disposition Patient Disposition: ED Admit(ED Internal Use Only) Discharge Condition Condition: Stable Discharge Order Discharge Orders: ED Use Only Admit Order (Routine); Ordered 05/03/18 Ordered By: Rosalio Walter Discharge Details Diagnosis: Upper gastrointestinal hemorrhage, Melena Physicians Team ED Provider: Rosalio Walter ED Midlevel Provider: Yuri Loomis Primary Care Provider: Star Hodge III Attending Provider: Speedy Leary Status ED Status: Admitted Observation Patient
[2018-05-03 18:14] LABS: Albumin 3.5 g/dL (3.4-5.0); Anion Gap 4 meq/L (5-15); Aspartate Aminotransferase 23 U/L (15-37); Blood Urea Nitrogen 16 mg/dL (7-18); Calcium 8.6 mg/dL (8.5-10.1); Carbon Dioxide 27.4 meq/L (21.0-32.0); Chloride 109 meq/L (98-107); Glomerular Filtration Rate 81 mL/min (>89); Glucose,Random 71 mg/dL (74-106); Magnesium 2.1 mg/dL (1.5-2.5); Potassium 4.5 meq/L (3.5-5.1); Sodium 140 meq/L (136-145)
[2018-05-03] MEDS: Pantoprazole Inj 80 MG in Sodium Chlor 0.9% Inj 100 ML IV.CONT SCH (18:50)
[2018-05-03] MEDS ORDERED: Acetaminophen 325 MG Tablet PO PRN (19:08)
--- NOTE | 2018-05-03 19:16 | P.HPIM ---
History of Present Illness Primary Care Physician: Star Hodge III, MD History of Present Illness: 63-year-old male with a history of CAD with stent placement 1 year ago, on Brilinta, history of liver cancer s/p resection, history of recent upper and lower GI scope with polyp removal from stomach. He presents to the ER today following 7 days of mixed black tarry and bright red blood in stool. Despite 7 days of bleeding his hemoglobin has dropped approximately one-point from his baseline. He states that following bowel movements he has epigastric pain that is brief and sharp. He states that he thought food might be worsening his condition and therefore has not been eating much but he has been drinking. He denies any vertigo or dizziness. He denies any chest pain or palpitations. He denies any shortness of breath or fever. He denies any urinary symptoms. ER physician spoke with GI who recommends trending his hemoglobins, bleeding is likely related to polypectomy, restarting Brilinta. His Brilinta should be held for now. Review of Systems Review of Systems: all other systems reviewed are negative [facility] Medical History Medical History Hepatitis C (Acute) Hypertension (Acute) Liver cancer (Acute) Myocardial infarct (Acute) Prostate cancer (Acute) Surgical History Surgical History H/O heart artery stent (Acute) Social History Social History Substance History: No History of Abuse Smoking Status: Current every day smoker Tobacco Type: Cigarettes How Often Do You Have a Drink Containing Alcohol: Never Recent Travel in [facility] within the Last 8 Weeks: No Recent Out of Country Travel within the Last 8 Weeks: No Immunization History Tetanus Immunization: >5 Years Medications and Allergies Allergies Allergy/AdvReac Type Severity Reaction Status Date / Time acetaminophen Allergy Severe HIVES Verified 05/03/18 17:08 aspirin Allergy Severe DOESN'T Verified 05/03/18 17:08 TAKE DUE TO HEPATITIS C zolpidem AdvReac Severe Hypotension Verified 05/03/18 17:08 Home Medications Medication Instructions Recorded Confirmed Type aspirin 81 mg PO DAILY 05/03/18 05/03/18 History carvedilol 6.25 mg PO BID 05/03/18 05/03/18 History lisinopril 2.5 mg PO DAILY 05/03/18 05/03/18 History omeprazole 40 mg PO DAILY 05/03/18 05/03/18 History ticagrelor [Brilinta] 60 mg PO BID 05/03/18 05/03/18 History Active Medications: Active Medications Acetaminophen (Tylenol) 650 mg PO Q4H PRN PRN Reason: Temp > 100.4 Pantoprazole Sodium 80 mg/ (Sodium Chloride) 100 mls @ 10 mls/hr IV.CONT Q10H BENY Last Admin: 05/03/18 18:50 Dose: 10 mls/hr Sodium Chloride (Ns Inj) 1,000 mls @ 42 mls/hr IV.CONT .[id number] BENY Ondansetron HCl (Zofran Inj) 4 mg IV.PUSH Q6H PRN PRN Reason: NAUSEA OR VOMITING Sodium Chloride (Ns Flush) 2 ml IV.FLUSH BID [facility] Sodium Chloride (Ns Flush) 2 ml IV.FLUSH PRN PRN PRN Reason: FLUSH AFTER USING IV ACCESS Physical Exam Vital signs: Vital Signs 05/03/18 15:23 05/03/18 16:50 05/03/18 17:14 Temperature 98.7 F 98.8 F Pulse Rate 70 64 65 Respiratory Rate 18 17 Blood Pressure 141/72 H 144/80 H Pulse Oximetry 100 99 Intake & Output 05/03/18 05/03/18 05/04/18 06:59 18:59 06:59 Intake Total 50 / 50 Balance 50 / 50 Weight 58.967 kg Intake: IV 50 / 50 Protonix Inj 80 MG In NS Inj 50 50 / 50 ML @ 600 mls/hr IV.SIG BOLUS ONE Rx#:[id number] Narrative: GENERAL: AAOx3, no acute distress, adequate nutrition SKIN: Warm and dry, no rashes. HEAD: Atraumatic. Normocephalic. EYES: Pupils equal, round, reactive to light. No scleral icterus. No injection or drainage. ENT: No nasal bleeding or discharge. Moist mucous membranes. Nonerythematous oropharynx. NECK: Trachea midline. No JVD. Thyroid size within normal limits. CARDIOVASCULAR: Regular rate and rhythm. No murmur, no gallops, no rubs. RESPIRATORY: Clear and equal to auscultation bilaterally. No crackles, no wheezes. No accessory muscle use. GASTROINTESTINAL: Abdomen soft, non-tender, nondistended, normal active bowel sounds. Hepatic and splenic margins not palpable. MUSCULOSKELETAL: Extremities without clubbing or cyanosis. No obvious deformities. No edema. NEUROLOGICAL: Awake and alert. No obvious cranial nerve deficits. Motor grossly within normal limits. No focal deficits. Five out of 5 muscle strength in the arms and legs. Normal speech. PSYCHIATRIC: Appropriate mood and affect; insight and judgment normal. Results Labs CBC & Chem 7: 05/03/18 17:15 05/03/18 17:15 Caprini VTE Risk Assessment Caprini VTE Risk Assessment: Moderate/High Risk (score >= 2) Caprini Risk Assessment Model: Point Value = 1 Point Value = 2 Point Value = 3 Point Value = 5 Age 41-60 Minor surgery BMI > 25 kg/m2 Swollen legs Varicose veins or History of unexplained or recurrent spontaneous Oral contraceptives or hormone replacement Sepsis (< 1 month) Serious lung disease, including pneumonia (< 1 month) Abnormal pulmonary function Acute myocardial infarction Congestive heart failure (< 1 month) History of inflammatory bowel disease Medical patient at bed rest Age 61-74 Arthroscopic surgery Major open surgery (> 45 min) Laparoscopic surgery (> 45 min) Malignancy Confined to bed (> 72 hours) Immobilizing plaster cast Central venous access Age >= 75 History of VTE Family history of VTE Factor V Leiden Prothrombin [id number] Lupus anticoagulant Anticardiolipin antibodies Elevated serum homocysteine Heparin-induced thrombocytopenia Other congenital or acquired thrombophilia Stroke (< 1 month) Elective arthroplasty Hip, pelvis, or leg fracture Acute spinal cord injury (< 1 month) Prophylaxis Regimen: Total Risk Factor Score Risk Level Prophylaxis Regimen 0-1 Low Early ambulation 2 Moderate Order ONE of the following: *Sequential Compression Device (SCD) *Heparin 5000 units SQ BID 3-4 Higher Order ONE of the following medications: *Heparin 5000 units SQ TID *Enoxaparin/Lovenox 40 mg SQ daily (WT < 150 kg, CrCl > 30 mL/min) *Enoxaparin/Lovenox 30 mg SQ daily (WT < 150 kg, CrCl > 10-29 mL/min) *Enoxaparin/Lovenox 30 mg SQ BID (WT < 150 kg, CrCl > 30 mL/min) AND/OR *Sequential Compression Device (SCD) 5 or more Highest Order ONE of the following medications: *Heparin 5000 units SQ TID (Preferred with Epidurals) *Enoxaparin/Lovenox 40 mg SQ daily (WT < 150 kg, CrCl > 30 mL/min) *Enoxaparin/Lovenox 30 mg SQ daily (WT < 150 kg, CrCl > 10-29 mL/min) *Enoxaparin/Lovenox 30 mg SQ BID (WT < 150 kg, CrCl > 30 mL/min) AND *Sequential Compression Device (SCD) Assessment and Plan Plan Acute onset GI bleed Black tarry stools indicate upper GI bleed, bright red blood mixed is possibly involvement of lower GI Patient had upper and lower GI scopes last March, polyp removed from stomach He resumed Brilinta due to history of cardiac stent, he has been continuing to take this at home At this point recommend cessation of Brilinta until bleeding stops We will follow CBC with a.m. labs Okay to eat for now, scope unlikely due to scope 1 month ago h/o coronary artery disease History of 2 stents placed 1 year ago, February 2017 Patient has been taking Brilinta to prevent reocclusion of stents Brilinta is at this point most likely cause of his GI bleed Holding Brilinta for now h/o hypertension Continue lisinopril, carvedilol h/o liver cancer Fortunately the cancer was on the edge of his liver and was resected successfully He has outpatient follow-up DVT prophylaxis SCDs, chemoprophylaxis held due to active GI bleed
[2018-05-03] MEDS ORDERED: Sod Chloride 0.9% Inj 1,000 ML IV.CONT SCH (20:00)
[2018-05-04] MEDS: Pantoprazole Inj 80 MG in Sodium Chlor 0.9% Inj 100 ML IV.CONT SCH ×3 (05:43→14:26)
[2018-05-04 06:41] LABS: Baso % (Auto) 0.5 % (0.0-2.0); Eos # (Auto) 0.2 th/mm3 (0.0-0.4); Hematocrit 33.7 % (39.0-51.0); Hemoglobin 11.4 gm/dL (13.0-17.0); Lymph # (Auto) 2.6 th/mm3 (1.0-4.8); Lymph % (Auto) 56.3 % (9.0-44.0); Mean Corpuscular HGB Conc 33.9 % (32.0-36.0); Mean Corpuscular Hemoglobin 29.7 pg (27.0-34.0); Mean Corpuscular Volume 87.6 fL (80.0-100.0); Mean Platelet Volume 9.2 fL (7.0-11.0); Mono # (Auto) 0.6 th/mm3 (0.0-0.9); Mono % (Auto) 13.3 % (0.0-8.0); Neut # (Auto) 1.2 th/mm3 (1.8-7.7); Neut % (Auto) 25.9 % (16.0-70.0); Platelet Count 123 th/mm3 (150-450); Red Blood Count 3.84 mil/mm3 (4.50-5.90); White Blood Count 4.7 th/mm3 (4.0-11.0)
[2018-05-04 07:26] LABS: Anion Gap 3 meq/L (5-15); Blood Urea Nitrogen 15 mg/dL (7-18); Calcium 8.4 mg/dL (8.5-10.1); Carbon Dioxide 27.8 meq/L (21.0-32.0); Chloride 112 meq/L (98-107); Glomerular Filtration Rate Greater Than 89 mL/min (>89); Glucose,Random 80 mg/dL (74-106); Potassium 3.9 meq/L (3.5-5.1); Sodium 143 meq/L (136-145)
[2018-05-04 12:00] VITALS: PULSE 59; TEMP 97.8
[2018-05-04 12:48] LABS: Baso % (Auto) 0.5 % (0.0-2.0); Eos # (Auto) 0.2 th/mm3 (0.0-0.4); Eos % (Auto) 4.5 % (0.0-4.0); Hematocrit 33.8 % (39.0-51.0); Hemoglobin 11.5 gm/dL (13.0-17.0); Lymph # (Auto) 2.9 th/mm3 (1.0-4.8); Lymph % (Auto) 58.6 % (9.0-44.0); Mean Corpuscular HGB Conc 34.1 % (32.0-36.0); Mean Corpuscular Volume 88.1 fL (80.0-100.0); Mean Platelet Volume 9.1 fL (7.0-11.0); Mono # (Auto) 0.6 th/mm3 (0.0-0.9); Mono % (Auto) 12.3 % (0.0-8.0); Neut # (Auto) 1.2 th/mm3 (1.8-7.7); Neut % (Auto) 24.1 % (16.0-70.0); Platelet Count 133 th/mm3 (150-450); Red Blood Count 3.84 mil/mm3 (4.50-5.90)
[2018-05-04 15:37] VITALS: BP 117/64; RESP 18; O2SAT 97
[2018-05-04 16:23] LABS: Hematocrit 33.5 % (39.0-51.0); Hemoglobin 11.3 gm/dL (13.0-17.0)
--- NOTE | 2018-05-04 17:39 | P.DS ---
DS: Providers Date of admission: 05/03/18 18:58 Primary care physician: Star Hodge III, MD Brief History from admission: 63-year-old male with a history of CAD with stent placement 1 year ago, on Brilinta, history of liver cancer s/p resection, history of recent upper and lower GI scope with polyp removal from stomach. He presents to the ER today following 7 days of mixed black tarry and bright red blood in stool. Despite 7 days of bleeding his hemoglobin has dropped approximately one-point from his baseline. He states that following bowel movements he has epigastric pain that is brief and sharp. He states that he thought food might be worsening his condition and therefore has not been eating much but he has been drinking. He denies any vertigo or dizziness. He denies any chest pain or palpitations. He denies any shortness of breath or fever. He denies any urinary symptoms. ER physician spoke with GI who recommends trending his hemoglobins, bleeding is likely related to polypectomy, restarting Brilinta. His Brilinta should be held for now. DS: Summary 63-year-old male admitted yesterday for black tarry stools consistent with upper GI bleed. He had had a upper and lower GI scope 1 month ago and had resumed his Brilinta (blood thinner) and aspirin following that procedure. The aspirin and Brilinta were held on admission, patient's hemoglobin trended from his baseline of 13.3 down to 12.2 yesterday and then down to 11.4 today but has stabilized in the 11.3-11.6 range. He has had no bowel movements today and is feeling well. Because his blood counts appear stable I believe he is safe for discharge to his home. I have instructed him to remain off of Brilinta and aspirin for the next 4 days, I have also instructed that he avoid non- dissolvable fiber such as that found in calor okra in order to avoid scraping the wall and lining of his gut. He is instructed to follow-up with GI and primary care as an outpatient. If any bleeding recurs he is instructed to come to the ER immediately. Time Spent with Patient Total time spent providing and/or coordinating discharge services: Quality: VTE Deep Vein Thrombosis/Pulmonary Embolism Present on Admission: No Results Labs on day of discharge: Labs from last 24 hours 05/04/18 05/04/1819 15:59 12:28 06:10 WBC 5.0 RBC 3.84 L Hgb 11.3 L 11.5 L Hct 33.5 L 33.8 L MCV 88.1 MCH 30.0 MCHC 34.1 RDW 14.0 Plt Count 133 L MPV 9.1 Neut % (Auto) 24.1 Lymph % (Auto) 58.6 H [place] % (Auto) 12.3 H Eos % (Auto) 4.5 H Baso % (Auto) 0.5 Neut # (Auto) 1.2 L Lymph # (Auto) 2.9 [place] # (Auto) 0.6 Eos # (Auto) 0.2 Baso # (Auto) 0.0 WBC Differential . Differential Comment Auto diff final PT INR APTT Sodium 143 Potassium 3.9 Chloride 112 H Carbon Dioxide 27.8 Anion Gap 3 L BUN 15 Creatinine 1.00 Estimated GFR Greater than 89 Random Glucose 80 Calcium 8.4 L Magnesium Total Bilirubin AST ALT Alkaline Phosphatase Total Protein Albumin Blood Type Blood Type Recheck Antibody Screen 05/04/18 05/03/18 05/03/18 06:10 17:15 17:15 WBC 4.7 RBC 3.84 L Hgb 11.4 L Hct 33.7 L MCV 87.6 MCH 29.7 MCHC 33.9 RDW 14.0 Plt Count 123 L MPV 9.2 Neut % (Auto) 25.9 Lymph % (Auto) 56.3 H [place] % (Auto) 13.3 H Eos % (Auto) 4.0 Baso % (Auto) 0.5 Neut # (Auto) 1.2 L Lymph # (Auto) 2.6 [place] # (Auto) 0.6 Eos # (Auto) 0.2 Baso # (Auto) 0.0 WBC Differential . Differential Comment Auto diff final PT INR APTT Sodium 140 Potassium 4.5 Chloride 109 H Carbon Dioxide 27.4 Anion Gap 4 L BUN 16 Creatinine 1.11 Estimated GFR 81 L Random Glucose 71 L Calcium 8.6 Magnesium 2.1 Total Bilirubin 0.2 AST 23 ALT 21 Alkaline Phosphatase 62 Total Protein 7.1 Albumin 3.5 Blood Type A Positive Blood Type Recheck Required Antibody Screen Negative 05/03/18 05/03/18 17:15 17:15 WBC 5.5 RBC 4.05 L Hgb 12.2 L Hct 35.8 L MCV 88.3 MCH 30.2 MCHC 34.2 RDW 13.8 Plt Count 144 L MPV 9.2 Neut % (Auto) 33.1 Lymph % (Auto) 46.7 H [place] % (Auto) 14.7 H Eos % (Auto) 5.1 H Baso % (Auto) 0.4 Neut # (Auto) 1.8 Lymph # (Auto) 2.6 [place] # (Auto) 0.8 Eos # (Auto) 0.3 Baso # (Auto) 0.0 WBC Differential . Differential Comment Auto diff final PT 10.8 INR 1.1 APTT 28.0 Sodium Potassium Chloride Carbon Dioxide Anion Gap BUN Creatinine Estimated GFR Random Glucose Calcium Magnesium Total Bilirubin AST ALT Alkaline Phosphatase Total Protein Albumin Blood Type Blood Type Recheck Antibody Screen Discharge Plan Discharge Disposition Patient Disposition: Discharge Home Discharge Condition Condition: Stable Discharge Order Discharge Orders: Discharge Order (Routine); Ordered 05/04/18 Ordered By: Speedy Leary Discharge Details Anticipated Discharge Date: 05/04/18 Physicians Team Primary Care Provider: Star Hodge III Attending Provider: Speedy Leary Rxs /Orders / Referrals /Forms Prescriptions: Continue carvedilol 6.25 mg Tablet 6.25 mg PO BID RF: 0 omeprazole 40 mg Capsule,Delayed Release(Dr/Ec) 40 mg PO DAILY RF: 0 lisinopril 2.5 mg Tablet 2.5 mg PO DAILY RF: 0 Discontinued aspirin 81 mg Tablet,Chewable 81 mg PO DAILY RF: 0 ticagrelor [Brilinta] 60 mg Tablet 60 mg PO BID RF: 0 Referrals: Star Hodge III, MD [Primary Care Provider] - See Instructions Discharge Instructions Patient Printed Instructions: Gastrointestinal Bleeding (DC), Melena (GEN) Status ED Status: Left Department
== END 2018-05-04 17:55 | disposition home or self-care (01) ==
LOC: NEDA 15:18 → NEPE 15:18 → NEDA 20:04 → NEPGCP 20:22
PROVIDERS: ADMIT Family Medicine; ATTEND Family Medicine
CPT/HCPCS: 80048; 80053; 83735; 85014; 85018; 85025; 85610; 85730; 86850; 86900; 86901; 90776; 96365; 96366; 96376; 99285; C9113; G0378; J7030